=== PATIENT | female | born 2000 | race Caucasian/White ===

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

== ENCOUNTER 2023-12-27 20:12 | Emergency (ER) | payer SELFPAY ==
--- NOTE | ~2023-12-27 | CT_ITS ---
EXAMINATION: CT abdomen pelvis w con DATE: 12/28/2023 02:27 INDICATION: Suprapubic pain TECHNIQUE: Computed tomography (CT) of the abdomen and pelvis was performed with 100 mL Omnipaque-350 intravenous contrast. Automated exposure control and iterative reconstruction technique were employe d. The dose-length product was 495.00 mGy-cm. COMPARISON: None FINDINGS: Lung bases are clear. Heart size is normal. No pericardial or pleural effusion. Liver, spleen, pancre as, bilateral adrenal glands and kidneys are normal. Cholecystectomy clips the gallbladder fossa. [place] els including the appendix are normal. Bladder, uterus and bilateral adnexa are unremarkable. No free intraperitoneal gas or fluid. No pathologically enlarged nodes are unremarkable. lymphadenopathy. Mi ld lumbar levocurvature. IMPRESSION: 1. No acute intra-abdominal/pelvic process. Reviewed, dictated and finalized at location A. OFFICER
[2023-12-27 20:59] VITALS: BP 154/89; PULSE 72; RESP 18; TEMP 36.3; O2SAT 100
--- NOTE | 2023-12-27 21:02 | ED.ABDPAIN ---
HPI - Abdominal Pain General Chief Complaint: Abdominal Pain <Chel Lester PA-C - Last Filed: 12/28/23 03:14> Stated Complaint: abd pain <Chel Lester PA-C - Last Filed: 12/28/23 03:14> Time Seen by Provider: 12/27/23 21:02 <Chel Lester PA-C - Last Filed: 12/28/23 03:14> Focused HPI: 23 y/o F reports for evaluation for suprapubic abdominal pain. Pt states she has had this pain for a while, it worsened today which brought her to the ED. She reports lower abdominal pain, difficulty urinating and defecating. States she was seen in this ER for the same sx a few months ago, f/u with OBGYN and has an appointment in 3 days for evaluation of endometriosis which she is currently being worked up for these symptoms. Denies dysuria, urinary freq or urgency, fever. States it feels like she is sitting on a ball and her cervix is misplaced. GENERAL: Well-appearing, well-nourished, and in no acute distress. HEAD: Normocephalic, atraumatic. CHEST: Clear to auscultation. ?No respiratory distress. ABD: Mild tenderness to suprapubic region, LLQ and RLQ. No guarding, rebound or rigidity. No CVA tenderness. HEART: Regular rate and rhythm.? NEURO: ?Alert and oriented x3. Patient screened in triage and initial orders placed.? ?Additional care and disposition to be based upon?diagnostic testing and treatment. <Chel Lester PA-C - Last Filed: 12/28/23 03:14> History of Present Illness HPI narrative: 23 y/o F reports for evaluation for suprapubic and lower abdominal pain. Pt states she has had this pain for a while, it worsened today which brought her to the ED. She reports lower abdominal pain, difficulty urinating and defecating. States she was seen in this ER for the same sx a few months ago, f/u with OBGYN and has an appointment in 3 days for evaluation of endometriosis. Patient is currently being worked up for these symptoms in his mental may be due to endometriosis. Awaiting laparoscopic diagnosis. Denies dysuria, urinary freq or urgency, fever. States it feels like she is sitting on a ball and her cervix is misplaced. <Chel Lester PA-C - Last Filed: 12/28/23 03:14> Related Data Home Medications: Home Medications Medication Instructions Recorded Confirmed No Home Medications 09/09/23 09/09/23 <Chel Lester PA-C - Last Filed: 12/28/23 03:14> Allergies/Adverse Reactions: Allergies Allergy/AdvReac Type Severity Reaction Status Date / Time No Known Allergies Allergy Verified 09/09/23 12:47 <Chel Lester PA-C - Last Filed: 12/28/23 03:14> Review of Systems Review of Systems: CONSTITUTIONAL: Denies fever, chills, or sweats. EYES: Denies visual changes, redness, or discharge. ENT: Denies rhinorrhea, congestion, sore throat, or otalgia. CARDIOVASCULAR: Denies chest pain, palpitations, or edema. RESPIRATORY: Denies cough or dyspnea. GASTROINTESTINAL: See HPI GENITOURINARY: Denies dysuria or hematuria. SKIN: Denies rash or itching. MUSCULOSKELETAL: Denies back pain, joint pain, or myalgia. NEUROLOGIC: Denies headache, numbness, or weakness. PSYCHIATRIC: Denies anxiety or depression. <Chel Lester PA-C - Last Filed: 12/28/23 03:14> PMFSH Social History Social History: Social History Smoking status: Current every day smoker Tobacco type: e-cigarettes/vaping Alcohol intake: current Alcohol use details: SOCIAL EVENTS - NOT WEEKLY Substance use: never Substance use type: does not use Living arrangements: with family Spiritual care concerns: No <Chel Lester PA-C - Last Filed: 12/28/23 03:14> Exam Narrative: GENERAL: Well-appearing, well-nourished, and in no acute distress. Patient resting comfortably in exam bed. She is pleasant and conversational. HEAD: Normocephalic, atraumatic. EYES: PERRLA and EOMI. ENT: Nares clear, no rhinorrhea or epistaxis. Mucous membr
[2023-12-27 22:25] LABS: Basophils Absolute Auto 0.1 K/mm3 (0.0-0.1); Basophils Percent Auto 0.5 % (0.2-1.2); Eosinophils Absolute Auto 0.3 K/mm3 (0-0.3); Eosinophils Percent Auto 3.4 % (0-4.4); Hematocrit 43.3 % (37.0-47.0); Hemoglobin 14.4 g/dL (12.0-15.0); Immature Granulocyte Absolute 0.02 K/mm3 (0.00-0.031); Immature Granulocyte Percent A 0.2 % (0-0.5); Lymphocytes Absolute Auto 3.62 K/mm3 (0.9-3.2); Lymphocytes Percent Auto 36.1 % (18.3-44.2); Mean Corpuscular HGB Conc 33.3 g/dl (32-36); Mean Corpuscular Hemoglobin 29.4 pg (26-34); Mean Corpuscular Volume 88.4 fl (80-100); Mean Platelet Volume 9.4 fl (7.4-10.4); Monocytes Absolute Auto 0.6 K/mm3 (0.1-0.6); Monocytes Percent Auto 6.2 % (2.6-8.5); Neutrophils Absolute Auto 5.4 K/mm3 (1.3-6.7); Neutrophils Percent Auto 53.6 % (45.5-73.1); Platelet Count Result 334 k/mm3 (150-375); Red Cell Distribution Width 12.4 % (11.5-14.5)
[2023-12-27 22:44] LABS: Appearance Urine Clear (Clear); Bilirubin Urine Negative (Negative); Blood Urine Negative (Negative); Color Urine Yellow (Yellow); Glucose Urine UA Negative (Negative); Ketones Urine Negative (Negative); Leukocyte Esterase Ur Negative LEU/UL (Negative); Nitrate Urine Negative (Negative); Protein Urine Negative (Negative); Specific Grav Ur 1.022 (1.001-1.035)
[2023-12-27 22:44] LABS: Alanine Aminotransferase 24 U/L (6-35); Albumin Level 4.7 g/dL (3.5-5.1); Alkaline Phosphatase 89 U/L (38-126); Anion Gap 10 mmol/L (8-16); Aspartate Amino Transferase 25 U/L (14-36); Bilirubin,Total 0.5 mg/dL (0.2-1.3); Blood Urea Nitrogen 11 mg/dL (7-17); Calcium 9.4 mg/dL (8.4-10.2); Carbon Dioxide 25 mmol/L (22-30); Chloride 105 mmol/L (98-107); Estimated CRCL calculation 114 ml/min; Estimated Glomerular Filt Rate > 60; Glucose 109 mg/dL (65-110); Lipase 85 U/L (23-300); Potassium 3.8 mmol/L (3.4-5.0); Sodium 140 mmol/L (137-145)
[2023-12-27 22:56] LABS: Add Urine Microscopic? NO
[2023-12-28 00:39] VITALS: BP 128/71; PULSE 78; RESP 15; TEMP 36.4; O2SAT 100
[2023-12-28 01:10] VITALS: BP 141/89; PULSE 102; RESP 14; TEMP 37; O2SAT 100
[2023-12-28] MEDS: KETOROLAC 30 MG/ML VIAL (*BKC) IV PUSH (01:48)
[2023-12-28 03:46] VITALS: BP 138/72; PULSE 88; RESP 18; O2SAT 100
[2023-12-28 04:23] VITALS: BP 125/78; PULSE 51; RESP 18; O2SAT 100
== END 2023-12-28 04:30 | disposition home or self-care (01) ==
PROVIDERS: Emergency Provider Physician Assistant
DX: R10.30 Lower abdominal pain, unspecified (principal); F17.290 Nicotine dependence, other tobacco product, uncomplicated
CPT/HCPCS: 36415; 74177; 80053; 81003; 81025; 83690; 85025; 96374; 99284; J1885; Q9967

== ENCOUNTER 2024-01-07 17:46 | Emergency (ER) | payer SELFPAY ==
[2024-01-07 18:29] VITALS: BP 148/87; PULSE 84; RESP 18; TEMP 36.3; O2SAT 100
--- NOTE | 2024-01-07 19:45 | ED.GENADULT ---
[facility] - General Adult General Chief complaint: Extremity Problem,Nontraumatic Stated complaint: hands, feet turning purple Time Seen by Provider: 01/07/24 19:24 Source: patient Mode of arrival: ambulatory Limitations: no limitations History of Present Illness [facility] narrative: This is a 23-year-old female who presents to the ED with chief complaint of skin discoloration that she has nose for the past week. Reports that intermittently her hands and feet will turn purple. Reports that shortly after she notices she starts to notice some tingling in the extremities. She also reports associated shaking after the skin discoloration comes on. Reports daily known trigger is standing upright. Also states that when she scratches her skin it stays red rather than turning white. Denies fevers, chills, chest pain, shortness of breath, nausea, vomiting this weakness. Related Data Home Medications Medication Instructions Recorded Confirmed No Home Medications 09/09/23 09/09/23 Allergies Allergy/AdvReac Type Severity Reaction Status Date / Time No Known Allergies Allergy Verified 09/09/23 12:47 Review of Systems Review of Systems: All systems as dictated in [facility] Social History Social History Smoking status: Current every day smoker Tobacco type: e-cigarettes/vaping Alcohol intake: current Alcohol use details: SOCIAL EVENTS - NOT WEEKLY Substance use: never Substance use type: does not use Living arrangements: with family Spiritual care concerns: No Exam Narrative: GENERAL: Well-appearing, well-nourished, and in no acute distress. HEAD: Normocephalic, atraumatic. EYES: PERRLA and EOMI. ENT: Nares clear, no rhinorrhea or epistaxis. Mucous membranes moist. Oropharynx without tonsillar hypertrophy exudate or other lesions. NECK: Supple. No adenopathy or masses. CHEST: No respiratory distress. Clear to auscultation. No wheezes rales or rhonchi HEART: Regular rate and rhythm. No murmur heard. Normal peripheral pulses. ABDOMEN: Soft, nontender, nondistended, normal active bowel sounds. MSK: Normal range of motion. No edema. SKIN: Warm, dry, no rash. no discoloration to the extremities peripherally or centrally. No significant warmth or tenderness. Cap refill intact throughout. NEURO: Alert and oriented x3. No focal deficits. 5/5 strength and sensation to the upper and lower extremities. PSYCH: Normal mood and affect. Course Vital Signs Vital signs: Vital Signs Temperature 97.3 F L 01/07/24 18: Pulse Rate 84 01/07/24 18:29 Respiratory Rate 18 01/07/24 18:29 Blood Pressure 148/87 H 01/07/24 18:29 Pulse Oximetry 100 01/07/24 18:29 Oxygen Delivery Room Air 01/07/24 18:29 Temperature 97.3 F L 01/07/24 18:29 Pulse Rate 84 01/07/24 18:29 Respiratory Rate 18 01/07/24 18:29 Blood Pressure 148/87 H 01/07/24 18:29 Pulse Oximetry 100 01/07/24 18:29 Oxygen Delivery Room Air 01/07/24 18:29 Medical Decision Making MDM Narrative Medical decision making narrative: This is a 23-year-old female who presents to the ED for chief complaint of skin discoloration to the hands and feet. Vitals are normal. Exam is benign. No discolored skin. No evidence of infection. Cap refill intact. Lab work is unremarkable. She may be having episodes of Raynaud's phenomenon based on history but there are no appreciable findings on exam today. Pt will be discharged in stable condition. Return precautions given and supportive measures discussed. Pt is understanding and agreeable with plan for discharge and follow-up with PCP. Vital Signs Vital Signs: Vital Signs Temperature 97.3 F L 01/07/24 18:29 Pulse Rate 84 01/07/24 18:29 Respiratory Rate 18 01/07/24 18:29 Blood Pressure 148/87 H 01/07/24 18:29 Pulse Oximetry 100 01/07/24 18:29 Oxygen Delivery Room Air 01/07/24 18:29 Temperature
[2024-01-07 20:17] LABS: Basophils Percent Auto 0.5 % (0.2-1.2); Eosinophils Absolute Auto 0.3 K/mm3 (0-0.3); Eosinophils Percent Auto 4.1 % (0-4.4); Hemoglobin 14.2 g/dL (12.0-15.0); Immature Granulocyte Absolute 0.01 K/mm3 (0.00-0.031); Immature Granulocyte Percent A 0.1 % (0-0.5); Lymphocytes Absolute Auto 3.25 K/mm3 (0.9-3.2); Lymphocytes Percent Auto 40.3 % (18.3-44.2); Mean Corpuscular Hemoglobin 29.5 pg (26-34); Mean Corpuscular Volume 89.4 fl (80-100); Mean Platelet Volume 9.5 fl (7.4-10.4); Monocytes Absolute Auto 0.6 K/mm3 (0.1-0.6); Monocytes Percent Auto 7.4 % (2.6-8.5); Neutrophils Absolute Auto 3.8 K/mm3 (1.3-6.7); Neutrophils Percent Auto 47.6 % (45.5-73.1); Platelet Count Result 298 k/mm3 (150-375); Red Blood Count 4.81 M/mm3 (4.2-5.4); Red Cell Distribution Width 12.5 % (11.5-14.5); White Blood Count 8.1 K/mm3 (4.5-10.0)
[2024-01-07 20:26] LABS: Alanine Aminotransferase 24 U/L (6-35); Albumin Level 4.7 g/dL (3.5-5.1); Alkaline Phosphatase 75 U/L (38-126); Anion Gap 9 mmol/L (8-16); Aspartate Amino Transferase 30 U/L (14-36); Bilirubin,Total 0.6 mg/dL (0.2-1.3); Blood Urea Nitrogen 14 mg/dL (7-17); Calcium 9.3 mg/dL (8.4-10.2); Carbon Dioxide 25 mmol/L (22-30); Chloride 105 mmol/L (98-107); Estimated CRCL calculation 129 ml/min; Estimated Glomerular Filt Rate > 60; Glucose 89 mg/dL (65-110); Potassium 4.2 mmol/L (3.4-5.0); Sodium 139 mmol/L (137-145)
== END 2024-01-07 20:45 | disposition home or self-care (01) ==
PROVIDERS: Emergency Provider Physician Assistant
DX: I99.9 Unspecified disorder of circulatory system (principal); F17.290 Nicotine dependence, other tobacco product, uncomplicated
CPT/HCPCS: 36415; 80053; 85025; 99283

== ENCOUNTER 2024-01-09 16:22 | Emergency (ER) | payer OTHER, SELFPAY ==
--- NOTE | ~2024-01-09 | XR_ITS ---
EXAMINATION: XR chest 2V DATE: 01/09/2024 18:23 INDICATION: Transient alteration of awareness TECHNIQUE: Frontal and lateral views of the chest are obtained COMPARISON: None available FINDINGS: The lungs are free of acute opacities. No pleural effusion or pneumothorax. The cardiomedia stinal silhouette is normal. The visualized bones and soft tissues are unremarkable. Cholecystectomy clips are noted. IMPRESSION: 1. No acute cardiopulmonary abnormality. Reviewed, dictated and finalized at location F. EMATICS TEACHER
--- NOTE | 2024-01-09 16:23 | ECG_ITS ---
Measurements Intervals [place] Rate: 70 P: 0 MI: 118 QRS: 21 QRSD: 82 T: 43 QT: 348 QTc: 376 Interpretive Statements SINUS RHYTHM WITH SINUS ARRHYTHMIA WITH SHORT MI INTERVAL RSR' IN V1 OR V2, PROBABLY NORMAL VARIANT BASELINE WANDER- II, III, AVF, V1-V6 BORDERLINE ECG NO PREVIOUS ECG AVAILABLE FOR COMPARISON Electronically Signed On 01-10-2024 6:29:14 SENIOR NET SOFTWARE DEVELOPER by Ace Paez D.O.
[2024-01-09 16:27] VITALS: BP 149/94; PULSE 73; RESP 16; TEMP 36.8; O2SAT 100
--- NOTE | 2024-01-09 18:11 | ED.GENADULT ---
HPI - General Adult General Chief complaint: Unspecified Stated complaint: MULT C/O Time Seen by Provider: 01/09/24 18:09 Source: patient Mode of arrival: ambulatory Limitations: no limitations History of Present Illness HPI narrative: This is a 23 year old female that presents to the ER for a syncopal episode today. Reports she was laying on the couch and started to feel very lightheaded and hot and passed out. Reports pre-syncopal episodes in the past. No injuries as she was already lying down. Reports when she woke up she started to have substernal chest discomfort and nausea. Denies vision changes, shortness of breath, vomiting, numbness or weakness. Related Data Home Medications Medication Instructions Recorded Confirmed No Home Medications 09/09/23 09/09/23 Allergies Allergy/AdvReac Type Severity Reaction Status Date / Time No Known Allergies Allergy Verified 09/09/23 12:47 Review of Systems Review of Systems: CONSTITUTIONAL: Denies fever EYES: Denies visual changes CARDIOVASCULAR: Reports chest pain. Denies edema. RESPIRATORY: Denies dyspnea. GASTROINTESTINAL: Reports nausea. Denies vomiting NEUROLOGIC: Denies numbness, or weakness. All systems reviewed & are unremarkable except as noted in HPI and below PMFSH Past Medical History Medical History (Updated 01/09/24 @ 20:08 by Leeanne Ferrell PA-C) No active medical problems Social History Social History Smoking status: Current every day smoker Tobacco type: e-cigarettes/vaping Alcohol intake: current Alcohol use details: SOCIAL EVENTS - NOT WEEKLY Substance use: never Substance use type: does not use Living arrangements: with family Spiritual care concerns: No Exam Narrative: GENERAL: Well-appearing, well-nourished, and in no acute distress. HEAD: Normocephalic, atraumatic. EYES: PERRLA and EOMI. ENT: Nares clear, no rhinorrhea or epistaxis. Mucous membranes moist. Oropharynx without tonsillar hypertrophy exudate or other lesions. Bilateral TMs pearly yang non-bulging NECK: Supple. No adenopathy or masses. CHEST: Clear to auscultation. No respiratory distress. No wheezes rales or rhonchi HEART: Regular rate and rhythm. No murmur heard. Normal peripheral pulses. EXTREMITIES: Normal range of motion. No edema. SKIN: Warm, dry, no rash. NEURO: No focal deficits. Alert and oriented x3. PSYCH: Normal mood and affect Course Course Emergency Course: Patient updated on her workup and agrees with plan of care Vital Signs Vital signs: Vital Signs Temperature 98.2 F 01/09/24 16:27 Pulse Rate 73 01/09/24 16:27 Respiratory Rate 16 01/09/24 16:27 Blood Pressure 149/94 H 01/09/24 16:27 Pulse Oximetry 100 01/09/24 16:27 Oxygen Delivery Room Air 01/09/24 16:27 Temperature 98.2 F 01/09/24 16:27 Pulse Rate 79 01/09/24 20:00 Respiratory Rate 13 01/09/24 20:00 Blood Pressure 131/74 01/09/24 20:00 Pulse Oximetry 100 01/09/24 20:00 Oxygen Delivery Room Air 01/09/24 16:27 Medical Decision Making MDM Narrative Medical decision making narrative: Patient presents to the emergency department for a syncopal episode today. Her vitals are stable. She is neurologically intact. CBC and metabolic panel without concerning findings. EKG without concerning changes in baseline troponin is negative. D-dimer is not elevated. Chest x-ray without acute cardiopulmonary abnormality. [place] syncope risk score makes her very low risk. Patient updated on her workup and agrees with plan of care. Will be given order for further monitoring with Holter monitor and was instructed to have close follow-up with primary provider. She was given warnings to return to the ER Vital Signs Vital Signs: Vital Signs Temperature 98.2 F 01/09/24 16:27 Pulse Rate 73 01/09/24 16:27 Respiratory Rate 16 01/09/24 16:27 Blood Pressure 149/94 H 02
[2024-01-09 18:28] VITALS: RESP 18; O2SAT 99
[2024-01-09] MEDS: SODIUM CHLORIDE 0.9% IV 1,000 ML 999 ML IV CONT (18:31)
[2024-01-09 18:42] LABS: Basophils Absolute Auto 0.1 K/mm3 (0.0-0.1); Basophils Percent Auto 0.5 % (0.2-1.2); Eosinophils Absolute Auto 0.5 K/mm3 (0-0.3); Eosinophils Percent Auto 4.6 % (0-4.4); Hematocrit 44.9 % (37.0-47.0); Hemoglobin 14.8 g/dL (12.0-15.0); Immature Granulocyte Absolute 0.03 K/mm3 (0.00-0.031); Immature Granulocyte Percent A 0.3 % (0-0.5); Lymphocytes Absolute Auto 3.37 K/mm3 (0.9-3.2); Mean Corpuscular Hemoglobin 29.8 pg (26-34); Mean Corpuscular Volume 90.3 fl (80-100); Mean Platelet Volume 9.7 fl (7.4-10.4); Monocytes Absolute Auto 0.7 K/mm3 (0.1-0.6); Monocytes Percent Auto 7.2 % (2.6-8.5); Neutrophils Absolute Auto 5.3 K/mm3 (1.3-6.7); Neutrophils Percent Auto 53.4 % (45.5-73.1); Platelet Count Result 328 k/mm3 (150-375); Red Blood Count 4.97 M/mm3 (4.2-5.4); Red Cell Distribution Width 12.6 % (11.5-14.5); White Blood Count 9.9 K/mm3 (4.5-10.0)
[2024-01-09 18:52] LABS: Alanine Aminotransferase 26 U/L (6-35); Albumin Level 4.8 g/dL (3.5-5.1); Alkaline Phosphatase 80 U/L (38-126); Anion Gap 6 mmol/L (8-16); Aspartate Amino Transferase 30 U/L (14-36); Bilirubin,Total 0.6 mg/dL (0.2-1.3); Blood Urea Nitrogen 13 mg/dL (7-17); Calcium 9.3 mg/dL (8.4-10.2); Carbon Dioxide 26 mmol/L (22-30); Chloride 106 mmol/L (98-107); Estimated CRCL calculation 114 ml/min; Estimated Glomerular Filt Rate > 60; Glucose 86 mg/dL (65-110); Sodium 138 mmol/L (137-145)
[2024-01-09 19:05] LABS: Troponin I < 0.012 ng/mL (0.000-0.034)
[2024-01-09] MEDS: ACETAMINOPHEN 500 MG TABLET 1000 MG PO (19:22)
[2024-01-09] MEDS: ONDANSETRON INJ 4 MG/2 ML VIAL IV PUSH (19:22)
[2024-01-09 19:42] LABS: D Dimer 0.39 ug/mL (<0.48)
[2024-01-09 20:00] VITALS: BP 131/74; PULSE 79; RESP 13; O2SAT 100
[2024-01-09 20:20] VITALS: BP 137/84; PULSE 65; RESP 19; O2SAT 98
== END 2024-01-09 20:20 | disposition home or self-care (01) ==
PROVIDERS: Emergency Provider Physician Assistant
DX: R55 Syncope and collapse (principal); F17.290 Nicotine dependence, other tobacco product, uncomplicated
CPT/HCPCS: 36415; 71046; 80053; 84484; 85025; 85380; 93005; 96361; 96374; 99284; A9270; J2405; J7030

== ENCOUNTER 2024-01-22 13:28 | Outpatient (CLI) | payer OTHER, SELFPAY ==
--- NOTE | 2024-01-28 16:17 | WPDHOLTEREM ---
Holter/Event Monitor Holter/Event Monitor Date of procedure: 01/22/24 Holter/Event Procedure: 48 Hr Holter Monitor Indications: Syncope Conclusion: 1. 48 hour holter monitor on 01/22/24. 2. Underlying rhythm is sinus rhythm. HR range 40-162 bpm; average HR 65 bpm. HR at 40 bpm was at 06:21. HR at 162 bpm was at 17:03. 3. There are 371 premature supraventricular complexes and 253 supraventricular couplets. No supraventricular tachycardia. 4. There are 2 premature ventricular complexes. No ventricular tachycardia. 5. No sinoatrial or atrioventricular blocks. No significant pauses greater than 2 seconds. 6. No symptoms available for correlation.
== END 2024-01-22 13:29 | disposition home or self-care (01) ==
LOC: ANHCARD 13:32
PROVIDERS: Visit Provider Physician Assistant
DX: R55 Syncope and collapse (principal)
CPT/HCPCS: 93225; 93226

== ENCOUNTER 2024-04-20 15:48 | Emergency (ER) | payer OTHER, SELFPAY ==
[2024-04-20 16:16] VITALS: BP 141/85; PULSE 60; RESP 18; TEMP 36.6; O2SAT 98
--- NOTE | 2024-04-20 17:03 | ED.BACK ---
HPI - Back Pain/Injury General Chief Complaint: Back Pain/Injury Stated Complaint: upper back pain Time Seen by Provider: 04/20/24 17:03 Source: patient Mode of arrival: ambulatory Limitations: no limitations History of Present Illness HPI Narrative: Bettina is a 23-year-old female patient presenting to the Emergency emergency room with complaints of left upper back pain after lifting a heavy box. Denies feeling a pop in her back. She reports that there is a sharp pain in her left upper back that is worse with movement. Related Data Allergies Allergy/AdvReac Type Severity Reaction Status Date / Time No Known Allergies Allergy Verified 09/09/23 12:47 Review of Systems Review of Systems: Pertinent positives per HPI. Patient denies any fever, chills, rash, headache, visual changes, dizziness, cough, runny nose, sore throat, shortness of breath, chest pain, palpitations, nausea, vomiting, diarrhea, constipation, abdominal pain, or any urinary issues. PMFSH Past Medical History Medical History No active medical problems Social History Social History Smoking status: Current every day smoker Tobacco type: e-cigarettes/vaping Alcohol intake: current Alcohol use details: SOCIAL EVENTS - NOT WEEKLY Substance use: never Substance use type: does not use Living arrangements: with family Spiritual care concerns: No Comments At the time of my signature, I reviewed and agree with the nursing past medical, surgical, social, and family history. There is no relevant family history pertinent to the patient complaint. Exam Narrative: General: Well-developed, well nourished, in no apparent distress Head: Normocephalic, atraumatic. Cardio: Regular rate and rhythm, s1 and s2 normal, no murmur appreciated. Resp: Clear to auscultation bilaterally, no rhonchi, rales, wheezing or rubs. Musculoskeletal: No deformity,tender to palpation over the rhomboid and the trapezius musculature of the left upper back, pain with movement of the left arm to the back with sharp pain also having pain when turning her neck to the left, muscle strength strong and equal, peripheral pulse strong, no edema, no cyanosis, normal gait and station Course Course Emergency Course: Portions of this record may have been created with voice recognition software. Vital Signs Vital signs: Vital Signs Temperature 36.6 C 04/20/24 16:16 Pulse Rate 60 04/20/24 16:16 Respiratory Rate 18 04/20/24 16:16 Blood Pressure 141/85 H 04/20/24 16:16 Pulse Oximetry 98 04/20/24 16:16 Oxygen Delivery Room Air 04/20/24 16:16 Temperature 36.6 C 04/20/24 16:16 Pulse Rate 60 04/20/24 16:16 Respiratory Rate 18 04/20/24 16:16 Blood Pressure 141/85 H 04/20/24 16:16 Pulse Oximetry 98 04/20/24 16:16 Oxygen Delivery Room Air 04/20/24 16:16 Vital signs reviewed MDM - Back Pain/Injury MDM Narrative Medical decision making narrative: At the time of visit patient is resting comfortably on the exam table. Patient appears to be nontoxic. Plan: I suspect patient has a muscle strain of the thoracic spine. Will send in prescription for naproxen and Flexeril. Supportive measures were discussed with the patient and they voiced understanding discharge instructions and agrees to treatment plan. Return precautions reviewed Differential Diagnosis Differential diagnosis: Likely thoracic back pain and other (Thoracic back strain, posterior lateral cervical trapezius muscle strain) Discharge Plan Discharge Clinical Impression: Strain of muscle and tendon of back wall of thorax, initial encounter Patient Disposition: Home, Self-Care Condition: Stable Instructions: Antibiotic Form, Thoracic Back Strain (ED) Additional Instructions: Take any prescription medication only as prescribed-naproxen and Flexer
== END 2024-04-20 17:13 | disposition home or self-care (01) ==
PROVIDERS: Emergency Provider Nurse Practitioner Family
DX: S29.012A Strain of muscle and tendon of back wall of thorax, initial encounter (principal); F17.290 Nicotine dependence, other tobacco product, uncomplicated; X50.0XXA Overexertion from strenuous movement or load, initial encounter
CPT/HCPCS: 99283

== ENCOUNTER 2024-07-10 14:48 | Emergency (ER) | payer OTHER, SELFPAY ==
--- NOTE | ~2024-07-10 | CT_ITS ---
EXAMINATION: CT brain wo con DATE: 07/10/2024 15:54 INDICATION: Headache TECHNIQUE: Computed tomography (CT) of the head was performed without intravenous contrast. Sagittal and coronal reconstructions were performed. The mA was adjusted according to patient size. Iterative reconstruction technique was employed. The dose-length product was 605.33 mGy-cm. COMPARISON: None FINDINGS: No acute intracranial hemorrhage, acute infarction or abnormal extra axial fluid collection. Ventricl es are normal and symmetric. No mass/mass effect. The orbits, paranasal sinuses and mastoid air cells are normal. IMPRESSION: 1. Normal head CT. Reviewed, dictated and finalized at location A. IMPRESSION: 1. Normal head CT.
[2024-07-10 14:53] VITALS: BP 127/72; PULSE 55; RESP 16; TEMP 36.4; O2SAT 99
--- NOTE | 2024-07-10 15:26 | ED.GENADULT ---
HPI - General Adult General Chief complaint: Headache Stated complaint: MIGRAINE X1WK Time Seen by Provider: 07/10/24 15:17 History of Present Illness HPI narrative: 23-year-old female presented emergency department presents emergency department for evaluation for persistent headache. Patient reports she has had intermittent headaches since the age of 14. Patient has never had follow-up for her headaches. Patient states that her headaches have worsened over the last few weeks. Patient does have associated light sensitivity and some nausea. Patient denies any recent illnesses coughs colds or fevers. Related Data Allergies Allergy/AdvReac Type Severity Reaction Status Date / Time No Known Allergies Allergy Verified 07/10/24 15:49 Review of Systems Review of Systems: All systems reviewed & are unremarkable except as noted in HPI and below PMFSH Past Medical History Medical History No active medical problems Social History Social History Smoking status: Current every day smoker Tobacco type: e-cigarettes/vaping Alcohol intake: current Alcohol use details: SOCIAL EVENTS - NOT WEEKLY Substance use: never Substance use type: does not use Living arrangements: with family Spiritual care concerns: No Exam Narrative: APPEARANCE: Well appearing, no pain, no distress, well-nourished. HEAD: normocephalic, atraumatic. EYES: PERRLA/EOMI, conjunctivae clear. NOSE: Normal no drainage EARS:TMS clear with good light reflex. THROAT: Pharynx clear, no exudate. NECK: Supple. No adenopathy, no masses. RESPIRATORY: Airway patent, respirations nonlabored. Clear to auscultation bilaterally, no rales, rhonchi, wheezing. CARDIOVASCULAR: Regular rate and rhythm without murmurs rubs or gallops. ABDOMINAL: Soft, nontender, nondistended, normal bowel sounds MUSCULOSKELETAL: Moves all extremities. Strength/ROM intact, No edema, No calf tenderness. NEURO: Alert. Cranial nerves II through XII intact. SKIN: Warm, dry. Normal Color Course Course Emergency Course: Patient felt improved with treatment and was discharged home with instructions to have follow-up with primary care physician and with Neurology. Vital Signs Vital signs: Vital Signs Temperature 97.5 F L 07/10/24 14:53 Pulse Rate 55 L 07/10/24 14:53 Respiratory Rate 16 07/10/24 14:53 Blood Pressure 127/72 07/10/24 14:53 Pulse Oximetry 99 07/10/24 14:53 Oxygen Delivery Room Air 07/10/24 14:53 Temperature 97.5 F L 07/10/24 14:53 Pulse Rate 51 L 07/10/24 15:46 Respiratory Rate 17 07/10/24 15:46 Blood Pressure 107/62 07/10/24 15:46 Pulse Oximetry 98 07/10/24 15:46 Oxygen Delivery Room Air 07/10/24 14:53 Medical Decision Making MDM Narrative Medical decision making narrative: 23-year-old female presenting to the emergency department for evaluation for persistent headaches that have been worsening over the last few weeks. Patient had a negative head CT. Patient did feel improved with treatment with IV Toradol, IV Compazine IV Benadryl and IV fluids. Patient was encouraged to follow-up with her primary care physician and patient was also encouraged of follow-up with Urology. All questions concerns were addressed patient was well-appearing at time of discharge. Differential Diagnosis Differential Diagnosis: Intracranial abnormality, headache, migraine Vital Signs Vital Signs: Vital Signs Temperature 97.5 F L 07/10/24 14:53 Pulse Rate 55 L 07/10/24 14:53 Respiratory Rate 16 07/10/24 14:53 Blood Pressure 127/72 07/10/24 14:53 Pulse Oximetry 99 07/10/24 14:53 Oxygen Delivery Room Air 07/10/24 14:53 Temperature 97.5 F L 07/10/24 14:53 Pulse Rate 51 L 07/10/24 15:46 Respiratory Rate 17 07/10/24 15:46 Blood Pressure 107/62 07/10/24 15:46 Pulse Oximetry 98 07/10/24 15:
[2024-07-10 15:46] VITALS: BP 107/62; PULSE 51; RESP 17; O2SAT 98
[2024-07-10] MEDS: PROCHLORPERAZINE EDISYLATE 10 MG/2 ML VIAL IV PUSH (16:14)
[2024-07-10] MEDS: KETOROLAC 15 MG/ML VIAL (*BKC) IV PUSH (16:15)
[2024-07-10] MEDS: SODIUM CHLORIDE 0.9% IV 1,000 ML 999 ML IV CONT (16:15)
[2024-07-10] MEDS: diphenhydrAMINE HCl INJ 50 MG/ML VIAL 25 MG IV PUSH (16:15)
== END 2024-07-10 17:39 | disposition home or self-care (01) ==
PROVIDERS: Emergency Provider Emergency Medicine
DX: R51.9 Headache, unspecified (principal); F17.290 Nicotine dependence, other tobacco product, uncomplicated
CPT/HCPCS: 70450; 96361; 96374; 96375; 99284; J0780; J1200; J1885; J7030

== ENCOUNTER 2024-12-16 21:56 | Emergency (ER) | payer OTHER, SELFPAY ==
--- NOTE | ~2024-12-16 | XR_ITS ---
HISTORY: dog jumped on heel COMPARISON: None TECHNIQUE: 2 views of the left foot were performed. FINDINGS: No acute fracture or dislocation is appreciated. No significant degenerative disease is noted. The base of the fifth metatarsal is intact. No calcaneal spur is noted. No significant soft tissue swelling is present. IMPRESSION: No acute fracture, as detailed above. Reviewed, dictated and finalized at location A. TERRAIN VEHICLE RACER
--- OUTSIDE RECORDS SUMMARY | 2024-12-16 21:59 | XMS_ITS | Clinical Summary ---
Author Organization [facility] Address [address] [place] [address] Phone Care Team Providers Care Machinist First Class Name Role Phone Provider, None Primary Care Provider Unavailabl e Allergies No known active allergies Medications metroNIDAZOLE (Flagyl) 500 MG Tablet Take 1 Tablet by mouth in the morning and at bedtime. 28 Tablet 3 Active traMADol (ULTRAM) 50 MG TabletIndications :Pelvic inflammatory disease Take 1 Tablet by mouth every 6 hours as needed for Moderate or more severe pain. 15 Tablet 3 Active Social History Tobacco Use Types Packs/Day Years Used Date Smoking Tobacco: Never Assessed Comments Unknown Sex and Gender Information Value Date Recorded Sex Assigned at Not on file Legal Sex Female 1:37 PM CDT Gender Identity Not on file Sexual Orientation Not on file Last Filed Vital Signs Vital Sign Reading Time Taken Comments Blood Pressure 119/72 08/21/2023 1:59 PM CDT Pulse 71 08/21/2023 7:51 PM CDT Temperature 36.7 C (98 F) 08/21/2023 1:59 PM CDT Respiratory Rate 18 08/21/2023 7:51 PM CDT Oxygen Saturation 99% 08/21/2023 7:5 1 PM CDT Inhaled Oxygen Concentration - - Weight 85.3 kg (188 lb 0.8 oz) 08/21/2023 1:59 PM CDT BMI incorrect due to technical error Height 175.3 cm (5' 9 ) 08/21/2023 1:59 PM CDT BMI incorrect due to technical error Body Mass Index 27.77 08/21/2023 1:59 PM CDT Plan of Treatment Health Maintenance Due Date Last Done Comments Hepatitis C Virus (HCV) Screening 2002 TdaP Immunization 2002 Human Papillomavirus (HPV) Immunization (1 - 3-dose series) 2017 Meningococcal B Immunization (1 of 2 - Standard) 2018 Hepatitis B Immunization (1 of 3 - 19+ 3-dose series) 2021 Pap Smear 2023 Influenza Immunization (#1) 2024 SARS-COV-2 Immunization (1 - season) 2024 Respiratory Syncytial Virus (RSV) Immunization (Adult) (1 - 1-dose 75+ series) 2077 Meningococcal Immunization (ACWY) Aged Out No longer eligible based on patient's age to complete this topic Pneumococcal Immunization Combined Aged Out No longer eligible based on patient's age to complete this topic Rotavirus Immunization Aged Out No lo nger eligible based on patient's age to complete this topic Care Teams Machinist First Class Relationship Specialty Start Date End Date Provider, None [place] PCP - General 08/21/23
[2024-12-16 22:00] VITALS: BP 136/74; PULSE 78; RESP 16; TEMP 36.3; O2SAT 100
--- NOTE | 2024-12-17 01:47 | ED.LOWEXIN ---
HPI - Extremity Injury (Lower) General Chief Complaint: Extremity Injury, Lower Stated Complaint: pain in the back of foot after 80lb dog jumped on Time Seen by Provider: 12/17/24 01:42 Source: patient Mode of arrival: ambulatory Limitations: no limitations History of Present Illness HPI Narrative: This is a 24-year-old female who presents to the ED for chief complaint of right ankle injury that occurred around 12:30 p.m. today. Patient states that her dog jumped off the couch and landed on the back of her right ankle. States that she has a lot of pain in the posterior right ankle/posterior right heel. States that weight-bearing causes pain as well as palpation. Denies any further injury. Denies twist or pop. Related Data Allergies Allergy/AdvReac Type Severity Reaction Status Date / Time No Known Allergies Allergy Verified 12/16/24 21:57 Review of Systems Review of Systems: All systems as dictated in HPI [facility] Past Medical History Medical History No active medical problems Social History Social History Smoking status: Current every day smoker Tobacco type: e-cigarettes/vaping Alcohol intake: current Alcohol use details: SOCIAL EVENTS - NOT WEEKLY Substance use: never Substance use type: does not use Living arrangements: with family Spiritual care concerns: No Exam Narrative: GENERAL: Well-appearing, well-nourished, and in no acute distress. MSK: RLE: Mild tenderness to the insertion site of the Achilles tendon. Sullivan test negative. No deformities. Neurovascularly intact distally. No tenderness over the malleoli. LLE: Benign SKIN: Warm, dry, no rash. NEURO: Alert and oriented x4. No focal deficits. PSYCH: Normal mood and affect. Course Vital Signs Vital signs: Vital Signs Temperature 97.4 F L 12/16/24 22:00 Pulse Rate 78 12/16/24 22:00 Respiratory Rate 16 12/16/24 22:00 Blood Pressure 136/74 12/16/24 22:00 Pulse Oximetry 100 12/16/24 22:00 Oxygen Delivery Room Air 12/16/24 22:00 Temperature 97.4 F L 12/16/24 22:00 Pulse Rate 78 12/16/24 22:00 Respiratory Rate 16 12/16/24 22:00 Blood Pressure 136/74 12/16/24 22:00 Pulse Oximetry 100 12/16/24 22:00 Oxygen Delivery Room Air 12/16/24 22:00 MDM - Extremity Injury (Lower) MDM Narrative Medical decision making narrative: This is a 24-year-old female who presents to the ED for chief complaint of right ankle injury that occurred earlier today. Vitals are normal. Exam is remarkable for the above. Pain is most concentrated at the Achilles tendon insertion point. Achilles tendon is intact on exam with a negative Sullivan test. Right foot x-ray show no acute findings. Presentation consistent with tendon strain. Patient will be discharged in stable condition. Supportive measures discussed and return precautions given. Patient is understanding and agreeable with plan for discharge with PCP follow-up. Discharge Plan Discharge Clinical Impression: Ankle sprain and strain Patient Disposition: Home, Self-Care Condition: Stable Instructions: Antibiotic Form Additional Instructions: Your exam and imaging today are reassuring overall. No evidence of any fracture. Please take naproxen twice per day as well as Tylenol every 6 hours as needed for pain. Symptoms should self resolve over the next couple of weeks. If you have any new or worsening symptoms please return to the ER for further evaluation. Patient Language: Vincentian Prescriptions: New naproxen 500 mg tablet 500 mg PO BID PRN (Reason: pain) Qty: 30 0RF No Action naproxen 500 mg tablet 500 mg PO BID PRN (Reason: pain) 7 Days Qty: 14 0RF cyclobenzaprine 10 mg tablet 10 mg PO Q8H PRN (Reason: muscle spasm) 7 Days Qty: 21 0RF Follow-up/Referrals: UNKNOWN,DOCTOR [Primary Care Provider] - Time of Disposition: :
--- OUTSIDE RECORDS SUMMARY | 2024-12-17 02:09 | XMS_ITS | Clinical Summary ---
Author Organization [facility] Address [address] [place] [address] Phone Care Team Providers Care Catshovel Driver Name Role Phone Provider, None Primary Care [...] age to complete this topic Care Teams Catshovel Driver Relationship Specialty Start Date End Date Provider, None [place] PCP - General 08/21/23
[2024-12-17] MEDS: NAPROXEN 500 MG TABLET PO (02:15)
[2024-12-17] MEDS: ACETAMINOPHEN 500 MG TABLET 1000 MG PO (02:15)
== END 2024-12-17 02:16 | disposition home or self-care (01) ==
LOC: ANHED 12-17 02:07
PROVIDERS: Emergency Provider Physician Assistant
DX: S93.401A Sprain of unspecified ligament of right ankle, initial encounter (principal); X58.XXXA Exposure to other specified factors, initial encounter
CPT/HCPCS: 73620; 99283; A9270

== ENCOUNTER 2025-01-19 23:19 | Emergency (ER) | payer OTHER, BC, SELFPAY ==
[2025-01-19 23:20] VITALS: BP 132/79; PULSE 95; RESP 16; TEMP 36.4; O2SAT 99
--- OUTSIDE RECORDS SUMMARY | 2025-01-19 23:21 | XMS_ITS | Clinical Summary ---
Author Organization [facility] Address [address] [place] [address] Phone Care Team Providers Care Automatic Toe Laster Name Role Phone Provider, None Primary Care [...] age to complete this topic Care Teams Automatic Toe Laster Relationship Specialty Start Date End Date Provider, None [place] PCP - General 08/21/23
--- OUTSIDE RECORDS SUMMARY | 2025-01-19 23:21 | XMS_ITS | Patient Health Record ---
Author Organization [facility] Address [address] [place] [address] Care Team Providers Care Flame Cutting Supervisor Name Role Phone Dr. Jeronimo Weaver Unavailable [phone] Deisy Rubin Unavailable [phone] Allergies No Known Allergies Reason For Referral No Information Medications Medication SIG (Take, Route, Frequency, Duration) Notes Start Date End Date Status Excedrin Migraine 250-250-65 MG 2 tablets Orally Once a day Active Topiramate 25 MG 1 tab at bedtime x 1 week, then 2 tabs at bedtime x 1 week, then 3 tabs at bedtime Orally as directed for 30 days 07/30/2024 Active SUMAtriptan Succinate 50 MG 1 tab Orally once, can repeat x1 after 2 hours for 30 days As needed for migraine (max 2 tabs/day) 07/30/2024 Active Problems Problem Type SNOMED Code ICD Code Onset Dates Problem Status W/U Status Risk Notes Problem Chronic migraine without aura, non-refractor y (disorder) (655761293350 100) Migraine without aura, not intractable, without status migrainosus (G43.009) Active confirmed Problem Migraine with aura (7540328) Migraine with aura, not intractable, without status migrainosus (G43.109) Active confirmed Problem Chronic migraine without aura, non-intractab le (218011719985 100) Chronic migraine without aura, not intractable, without status migrainosus (G43.709) Active confirmed Encounters Encounter Location Date Provider Diagnosis [facility] [place] [address] [address] 10/15/2024 Deisy Rubin Chronic migraine without aura, not intractable, without status migrainosus G43.709 and Drug-induced headache, not elsewhere classified, not intractable G44.40 [facility] [place] [address] [address] 07/30/2024 Jeronimo Weaver Chronic migraine without aura, not intractable, without status migrainosus G43.709 and Drug-induced headache, not elsewhere classified, not intractable G44.40 Assessments Encounter Date Diagnosis (ICD Code) Assessment Notes Treatment Notes Treatment Clinical Notes Section Notes 07/30/2024 Chronic migraine without aura, not intractable, without status migrainosus (ICD-10 - G43.709) -Abortive treatment plan: Start sumatriptan 50 mg tablets. May take second tablet in 2 hours if first done is ineffective. Gave samples of Nurtec and Ubrelvy.-Preventi ve treatment plan: Start topamax 25 mg qhs x 7 days, increase to 50 mg qhs x7 days, then increase to 75 mg qhs from then on. Patient counseled r.e. potential side effects.-Educated the patient on migraine lifestyle recommendations. I recommended the following measures: avoid known triggers of migraine, drink > 100 fluid ounces of non-caffeinated fluid daily, limit caffeine to 2 servings/day, sleep 7-8 hours/night and address any sleep concerns with us and report symptoms of snoring or fatigue; healthy management of stress; avoid treating headaches more than 2 days/week with abortive medication unless approved in treatment plan; can take Riboflavin 400 mg and Magnesium 500 mg daily as supplements; keep scheduled follow-up appointments 07/30/2024 Drug-induced headache, not elsewhere classified, not intractable (ICD-10 - G44.40) Limit use of Excedrin and OTC analgesics to less than 2x weekly. Educated patient regarding medication overuse headaches. Advised to avoid taking NSAIDs or acetaminophen > 15 days/month, triptans or DHE > 10 days/month, butalbital > 10 days/month to avoid rebound headaches. 10/15/2024 Chronic migraine without aura, not intractable, without status migrainosus (ICD-10 - G43.709) 10/15/2024 Drug-induced headache, not elsewhere classified, not intractable (ICD-10 - G44.40) Plan Of Treatment No Information Insurance Providers Payer Name Payer Address Payer Phone Subscriber Number Group Number Insured Name Patient Relationship to Insured Coverage Start Date Coverage End Date [facility] [address] [place] [address] [id number] Natalio [place] Spouse - patient is the spouse of the insured 4 Medical (General) History Medical History History ICD Code Migraine Surgical History Surgery Date(Month/Year) Cholecystectomy
--- OUTSIDE RECORDS SUMMARY | 2025-01-19 23:21 | XMS_ITS ---
Author Organization [facility] Address [address] [place] [address] Care Team Providers Care Applied Marine Physics Professor Name Role Phone Dr. Jeronimo Weaver Unavailable [phone] Deisy Rubin Unavailable [phone] Allergies No Known Allergies REASON FOR VISIT NO SHOW Medications Medication SIG (Take, Route, Frequency, Duration) [...] for migraine (max 2 tabs/day) 07/30/2024 Active Encounters Encounter Location Date Provider Diagnosis [facility] [address] [facility] [address] [place] [id number] 10/15/2024 Deisy Rubin Chronic migraine without aura, not intractable, without status migrainosus G43.709 and Drug-induced headache, not elsewhere classified, not intractable G44.40 Assessments Encounter Date Diagnosis (ICD Code) Assessment Notes Treatment Notes Treatment Clinical Notes Section Notes 10/15/2024 Chronic migraine without aura, not intractable, without status migrainosus (ICD-10 - G43.709) 10/15/2024 Drug-induced headache, not elsewhere classified, not intractable (ICD-10 - G44.40) Plan Of Treatment Next Appt Details Follow Up: , Reason: Evaluat ion and Management Progress Notes * Veronica CLAYTONOB: 2 (24 yo F)Acc No.[id number]:10/15/2024 Progress Notes Patient: Bettina LUNA Provider: Td Rubin APRN :2000 A ge:24 Y S ex:Female Date:10/15/2024 Address:[address] [place] [address] Subjective: * Chief Complaints: * 1 . NO SHOW. * ROS: R ESPIRATORY: Positive for P atient denies shortness of breath or wheezing. O PHTHALMOLOGY: Positive for R eviewed and except as mentioned above in the HPI is negative. E NDOCRINOLOGY: Positive for P atient denies heat intolerance, cold intolerance, polyuria, elevated blood sugar, chronic fatigue. C ARDIOLOGY: Positive for P atient denies dizziness, palpitations, or chest pain. G ASTROENTEROLOGY: Positive for P atient denies diarrhea, melena, bloody stools, or abdominal pain. U ROLOGY: Positive for P atient denies urinary incontinence or urinary dysfunction. D ERMATOLOGY: Positive for P atient denies rash or hives. ? N EUROLOGY: Positive for R eviewed and except as mentioned above in the HPI is negative. H EMATOLOGY/LYMPH: Positive for P atient denies history of excessive bruising or bleeding diasthesis. M USCULOSKELETAL: Positive for P atient denies extremity joint pain or swelling. P SYCHOLOGY: Positive for R eviewed and except as discussed above in the HPI is otherwise negative. * Medical History: Diana igraine. * Surgical History: C holecystectomy . * Family History: She has a family history of migraines (mother). * Social History: Non-smoker. * Medications: T aking SUMAtriptan Succinate 50 MG Tablet 1 tab Orally once, can repeat x1 after 2 hours As needed for migraine (max 2 tabs/day), Taking Topiramate 25 MG Tablet 1 tab at bedtime x 1 week, then 2 tabs at bedtime x 1 week, then 3 tabs at bedtime Orally as directed , Taking Excedrin Migraine 250-250-65 MG Tablet 2 tablets Orally Once a day * Allergies: N .K.D.A. Objective: * Vitals: Assessment: * Assessment: 1. C hronic migraine without aura, not intractable, without status migrainosus - G43.709 (Primary) 2 . D rug-induced headache, not elsewhere classified, not intractable - G44.40 Plan: * Treatment: * Follow Up: Christos sandra: Evaluation and Management * Billing Information: * Visit Code: * Procedure Codes: * Electronic signature of VICKEY Pickard on 01/19/2025 at 11:21 PM CDT Sign off status: Pending * Provider: Td Rubin APRN Date: 12/16/2023 Generated for Dg hicks/Melvi/Radu on: 0 01/19/2025 11:21 PM CDT
--- OUTSIDE RECORDS SUMMARY | 2025-01-19 23:21 | XMS_ITS ---
Author Organization [facility] Address [address] [place] [address] Care Team Providers Care Pm Head Cook Name Role Phone Dr. Jeronimo Weaver Unavailable [phone] Deisy Rubin Unavailable [phone] Allergies No Known Allergies REASON FOR VISIT Headache follow-up Medications Medication SIG (Take, Route, Frequency, Duration) Notes Start Date End Date Status SUMAtriptan Succinate 50 MG 1 tab Orally once, can repeat x1 after 2 hours for 30 days As needed for migraine (max 2 tabs/day) 07/30/2024 Active Topiramate 25 MG 1 tab at bedtime x 1 week, then 2 tabs at bedtime x 1 week, then 3 tabs at bedtime Orally as directed for 30 days 07/30/2024 Active Excedrin Migraine 250-250-65 MG 2 tablets Orally Once a day Active Encounters Encounter Location Date Provider Diagnosis [facility] [address] [address] 09/10/2024 Deisy Rubin Chronic migraine without aura, not intractable, without status migrainosus G43.709 and Drug-induced headache, not elsewhere classified, not intractable G44.40 Assessments Encounter Date Diagnosis (ICD Code) Assessment Notes Treatment Notes Treatment Clinical Notes Section Notes 09/10/2024 Chronic migraine without aura, not intractable, without status migrainosus (ICD-10 - G43.709) 09/10/2024 Drug-induced headache, not elsewhere classified, not intractable (ICD-10 - G44.40) Plan Of Treatment Next Appt Details Follow Up: , Reason: Evaluat ion and Management Progress Notes * Veronica CLAYTONOB: 2 (24 yo F)Acc No.[id number]:09/10/2024 Progress Notes Patient: Bettina LUNA Provider: Td Rubin APRN :2000 A ge:24 Y S ex:Female Date:09/10/2024 Address:[address] [place], [place] [address] Subjective: * Chief Complaints: * 1 . Headache follow-up. * HPI: * Introduction: I had the pleasure of seeing Frederick Clayton, who presented for follow-up for chronic migraine and MOH. * Initial History: INITIAL VISIT HISTORY: She endorses worsening headaches over the last year. She was recently seen in the ED for migraine and imaging was normal. She is currently having daily headaches. The headaches consist of bilateral pain in the forehead and temporal regions. She has associated symptoms of nausea and photophobia. The headaches last several days with or without treatment. She has been taking Excedrin daily for several months. She has not been prescribed migraine medications in the past. She has a family history of migraines (mother). She denies any history of head trauma or injury. Headache History: -Headache Onset: Age 14-Headache Description: Starts with bilateral frontal and temporal pain and pressure. The pain progressively gets worse. She has associated symptoms of nausea and photophobia. The headache can last 24 hours to one week. -Headache Triggers: None identified -Headache Frequency: The patient is currently experiencing 30 Headache days/month and 2-3 severe migraine days/month. * Previous Impression & Plan: Notes P revious Diagnoses: 1 . Chronic migraine without aura, not intractable, without status migrainosus - G43.709 (Primary) 2 . Drug-induced headache, not elsewhere classified, not intractable - G44.40 P revious Recommendations: 1 . Abortive: S tart sumatriptan 50 mg tablets. May take second tablet in 2 hours if first done is ineffective. Gave samples of Nurtec and Ubrelvy. Preventive: Start topamax 25 mg qhs x 7 days, increase to 50 mg qhs x7 days, then increase to 75 mg qhs from then on. Patient counseled r.e. potential side effects. 2 . Limit use of Excedrin and OTC analgesics to less than 2x weekly. Educated patient regarding medication overuse headaches. Advised to avoid taking NSAIDs or acetaminophen > 15 days/month, triptans or DHE > 10 days/month, butalbital > 10 days/month to avoid rebound headaches. * Interval History: Notes P harmacologic Treatment: C urrent abortive treatment: Sumatriptan 50 mg, s amples of Nurtec and Ubrelvy P revious abortive treatment: E xcedrin (inconsistently/partially effective), G oody's headache powder (aspirin/acetaminophen/caffeine), ibuprofen, acetaminophen C urrent preventive treatment: Topamax 75 mg? P revious preventive treatment: M edication overuse: Present (Daily Excedrin) H eadache Frequency: I nitial/baseline headache/migraine days/month: 30/2-3 L ast visit headache/migraine days/month:-3 C urrent headache/migraine days/month: / H eadache Scales: H IT-6: Current score: . Prior score: 83 I nterval History: L ast visit was on 07/30/2024.. * ROS: C ONSTITUTIONAL: Positive for P atient denies fevers, chills, sweats, unintended weight loss, loss of appetite, or chronic fatigue. E NT: Positive P atient denies ear fullness or pain or sinus pain. R ESPIRATORY: Positive for P atient denies [...] HPI is otherwise negative. * Medical History: M igrha. * Surgical History: C holecystectomy . * [...] * Allergies: N .K.D.A. Objective: * Vitals: * Examination: G eneral examination: General appearance: P leasant, well-developed, no distress.? HEENT: P upils equal, round and reactive to light. No conjunctival injection. No tenderness to palpation over the maxillary sinuses. No turbinate hypertrophy. Tympanic membranes appear normal. No oral lesions. No tenderness over the occipital notch bilaterally. Oral cavity: N ormal, no lesions. Neck, thyroid : S upple, non-tender, no anterior cervical lymphadenopathy. Breasts : N ot performed. Heart: R RR, S1-S2, no murmurs, no rubs, no gallops. Lungs: C lear to auscultation and percussion in all lung tello. Abdomen: S oft, NT/ND, normal active bowel sounds. Neurologic exam: A lert and oriented x 4. Fluent speech. Intact recall, fund of knowledge. Appropriate affect. PERRL. EOMI without nystagmus. No visual field cut. Facial sensation intact to light touch and pinprick in bilateral V1/V2/V3. Facial movements normal and symmetric. Hearing intact to finger rub bilaterally. Palate symmetrically upgoing. Tongue midline. Motor 5/5 strength in all extremities. Reflexes 2+/2 and symmetric in all extremities. Bilateral flexor plantar responses. Sensory exam intact to light touch, pinprick, vibration, and proprioception in all extremities. Cerebellar testing no ataxia or dysmetria. Gait normal, negative Romberg, intact tandem. Skin: N ormal, no rash, urticaria, angioedema. Peripheral pulses: n ormal (2+) bilaterally. Back: N o cervical or periscapular trigger points. Normal cervical and lumbar ROM. Extremities: N ormal ROM, no clubbing, no cyanosis, no edema. Genitalia: N ot performed. Assessment: * Assessment: 1. C hronic migraine without aura, not intractable, without status migrainosus - G43.709 (Primary) 2 . D rug-induced headache, not elsewhere classified, not intractable - G44.40 Plan: * Treatment: * Procedure Codes: 9 6160 PT-FOCUSED HLTH RISK ASSMT, G8427 DOC MEDS VERIFIED W/PT OR RE, G2211 Complex e/m visit add on * Follow Up: Christos sandra: Evaluation and Management * Billing Information: * Visit Code: 35355 Office Visit, Est Pt., Level 4. Modifiers: 25 45412 Office Visit, Est Pt., Level 3. Modifiers: 25 20978 Office Visit, Est Pt., Level 5. Modifiers: 25 * Procedure Codes: 85718 PT-FOCUSED HLTH RISK ASSMT. G8427 DOC MEDS VERIFIED W/PT OR RE. G2211 Complex e/m visit add on. * Electronic signature of VICKEY Pickard on 01/19/2025 at 11:21 PM CDT Sign off status: Pending * Provider: Td Rubin, DANE Date: 1 Generated for Dg hicks/Melvi/Anneitting on: 0 01/19/2025 11:21 PM CDT History and Physical Notes * HPI (History of Present Illness) Category Sub-Category Detail Notes Category Notes *Introduction I had the pleasure of seeing Bettina Clayton, who presented for follow-up for chronic migraine and MOH *Initial History INITIAL VISIT HISTORY: She endorses worsening headaches over the last year. She was recently seen in the ED for migraine and imaging was normal. She is currently having daily headaches. The headaches consist of bilateral pain in the forehead and temporal regions. She has associated symptoms of nausea and photophobia. The headaches last several days with or without treatment. She has been taking Excedrin daily for several months. She has not been prescribed migraine medications in the past. She has a family history of migraines (mother). She denies any history of head trauma or injury. Headache History: -Headache Onset: Age 14-Headache Description: Starts with bilateral frontal and temporal pain and pressure. The pain progressively gets worse. She has associated symptoms of nausea and photophobia. The headache can last 24 hours to one week. -Headache Triggers: None identified -Headache Frequency: The patient is currently experiencing 30 Headache days/month and 2-3 severe migraine days/month *Previous Impression & Plan Notes Previous Diagnoses:1. Chroni c migraine without aura, not intractable, without status migrainosus - G43.709 (Primary)2. Drug-induced headache, not elsewhere classified, not intractable - G44.40Previous Recommendations:1. Abortive: Start sumatriptan 50 mg tablets. May take second tablet in 2 hours if first done is ineffective. Gave samples of Nurtec and Ubrelvy. Preventive: Start topamax 25 mg qhs x 7 days, increase to 50 mg qhs x7 days, then increase to 75 mg qhs from then on. Patient counseled r.e. potential side effects.2. Limit use of Excedrin and OTC analgesics to less than 2x weekly. Educated patient regarding medication overuse headaches. Advised to avoid taking NSAIDs or acetaminophen > 15 days/month, triptans or DHE > 10 days/month, butalbital > 10 days/month to avoid rebound headaches *Interval History Notes Pharmacologic Treatment:Curr ent abortive treatment: Sumatriptan 50 mg, samples of Nurtec and UbrelvyPrevious abortive treatment: Excedrin (inconsistently/partially effective), Goody's headache powder (aspirin/acetaminophen/caffeine), ibuprofen, acetaminophenCurrent preventive treatment: Topamax 75 mg Previous preventive treatment:Medication overuse: Present (Daily Excedrin)Headache Frequency:Initial/baseline headache/migraine days/month: 30/2-3Last visit headache/migraine days/month: 30/2-3Current headache/migraine days/month: /Headache Scales:HIT-6: Current score: . Prior score: 83Interval History:Last visit was on 07/30/2024. Examination Category Sub-Category Detail Notes Category Not es General examination HEENT: Pupils equal , round and reactive to light. No conjunctival injection. No tenderness to palpation over the maxillary sinuses. No turbinate hypertrophy. Tympanic membranes appear normal. No oral lesions. No tenderness over the occipital notch bilaterally Neck, thyroid : Supple, non-tender, no anterior cervical lymphadenopathy Heart: RRR, S1-S2, no murmu rs, no rubs, no gallops Lungs: Clear to auscultatio n and percussion in all lung tello Abdomen: Soft, NT/ND, normal active bowel sounds Extremities: Normal ROM, no clubb ing, no cyanosis, no edema General appearance: Pleasant, well-devel oped, no distress Skin: Normal, no rash, urt icaria, angioedema Neurologic exam: Alert and oriented x 4. Fluent speech. Intact recall, fund of knowledge. Appropriate affect. PERRL. EOMI without nystagmus. No visual field cut. Facial sensation intact to light touch and pinprick in bilateral V1/V2/V3. Facial movements normal and symmetric. Hearing intact to finger rub bilaterally. Palate symmetrically upgoing. Tongue midline. Motor 5/5 strength in all extremities. Reflexes 2+/2 and symmetric in all extremities. Bilateral flexor plantar responses. Sensory exam intact to light touch, pinprick, vibration, and proprioception in all extremities. Cerebellar testing no ataxia or dysmetria. Gait normal, negative Romberg, intact tandem Oral cavity: Normal, no lesions Breasts : Not performed Peripheral pulses: normal (2+) bilatera lly Back: No cervical or peris capular trigger points. Normal cervical and lumbar ROM Genitalia: Not performed
--- OUTSIDE RECORDS SUMMARY | 2025-01-19 23:22 | XMS_ITS ---
Author Organization [facility] Address [address] [place] [address] Care Team Providers Care Circus Agent Name Role Phone Dr. Jeronimo Weaver Unavailable [phone] Deisy Rubin Unavailable [phone] Allergies No Known Allergies REASON FOR VISIT Headache follow-up Medications Medication SIG (Take, Route, Frequency, Duration) Notes Start Date End Date Status Topiramate 25 MG 1 tab at bedtime x 1 week, then 2 tabs at bedtime x 1 week, then 3 tabs at bedtime Orally as directed for 30 days 07/30/2024 Active Excedrin Migraine 250-250-65 MG 2 tablets Orally Once a day Active SUMAtriptan Succinate 50 MG 1 tab Orally once, can repeat x1 after 2 hours for 30 days As needed for migraine (max 2 tabs/day) 07/30/2024 Active Encounters Encounter Location Date Provider Diagnosis [facility] [address] [address] 10/01/2024 Deisy Rubin Chronic migraine without aura, not intractable, without status migrainosus G43.709 and Drug-induced headache, not elsewhere classified, not intractable G44.40 Assessments Encounter Date Diagnosis (ICD Code) Assessment Notes Treatment Notes Treatment Clinical Notes Section Notes 10/01/2024 Chronic migraine without aura, not intractable, without status migrainosus (ICD-10 - G43.709) 10/01/2024 Drug-induced headache, not elsewhere classified, not intractable (ICD-10 - G44.40) Plan Of Treatment Next Appt Details Follow Up: , Reason: Evaluat ion and Management Progress Notes * Veronica CLAYTONOB: 2 (24 yo F)Acc No.[id number]:10/01/2024 Progress Notes Patient: Bettina LUNA Provider: Td Rubin APRN :2000 A ge:24 Y S ex:Female Date:10/01/2024 Address:[address] [place], [place] [address] Subjective: * Chief Complaints: * 1 . [...] Treatment: C urrent abortive treatment: Sumatriptan 50 mg tablets, s amples of Nurtec and Ubrelvy, E xcedrin (inconsistently/partially effective) P revious abortive treatment: Goody's headache powder (aspirin/acetaminophen/caffeine), ibuprofen, acetaminophen C urrent preventive treatment: Topamax 7 5 mg qhs P revious preventive treatment: M edication overuse: Present (Daily Excedrin) O ther modalities: H eadache Frequency: I nitial/baseline headache/migraine days/month: /2- L ast visit headache/migraine days/month:- C urrent headache/migraine days/month: / Headache Scales:HIT-6: Current Score: . Prior Score: 83 I nterval History: L ast visit [...] is otherwise negative. * Medical History: Diana igrha. * Surgical History: C holecystectomy . [...] Management * Billing Information: * Visit Code: 99279 Office Visit, Est Pt., Level 4. Modifiers: 48418 Office Visit, Est Pt., Level 3. Modifiers: 25 15747 Office Visit, Est Pt., Level 5. Modifiers: 25 * Procedure Codes: 30069 PT-FOCUSED HLTH RISK ASSMT. G8427 DOC MEDS VERIFIED W/PT OR RE. G2211 Complex e/m visit add on. * Electronic signature of VICKEY Pickard on 01/19/2025 at 11:21 PM CDT Sign off status: Pending * Provider: Td Rubin, MACHINERY MECHANIC Date: 12/01/2023 Generated for Dg hicks/Melvi/Anneitting on: 0 01/19/2025 [...] Pharmacologic Treatment:Curr ent abortive treatment: Sumatriptan 50 mg tablets, samples of Nurtec and Ubrelvy, Excedrin (inconsistently/partially effective)Previous abortive treatment: Goody's headache powder (aspirin/acetaminophen/caffeine), ibuprofen, acetaminophenCurrent preventive treatment: Topamax 75 mg qhsPrevious preventive treatment:Medication overuse: Present (Daily Excedrin)Other modalities: Headache Frequency:Initial/baseline headache/migraine days/month: 30/2-3Last visit headache/migraine days/month: 30/2-3Current headache/migraine days/month: /Headache Scales:HIT-6: Current Score: . Prior Score: 83Interval History:Last visit was on 07/30/2024. Examination [...]
[2025-01-19 23:54] VITALS: PULSE 72; RESP 19; O2SAT 99
[2025-01-20] VITALS (14 sets, daily range): BP systolic 120–136; BP diastolic 73–89; PULSE 55–88; RESP 14–22; O2SAT 97–100
[2025-01-20 00:04] LABS: BEDSIDEPREGUCG Negative (Negative)
--- OUTSIDE RECORDS SUMMARY | 2025-01-20 00:40 | XMS_ITS ---
Author Organization [facility] Address [address] [place] [address] Care Team Providers Care Silk Weaver Name Role Phone Dr. Jeronimo Weaver Unavailable [phone] Deisy Rubin Unavailable [phone] Allergies No Known Allergies REASON FOR VISIT [...] Encounters Encounter Location Date Provider Diagnosis [facility] [address]22 [facility] [address] [place] [address] 10/15/2024 Deisy Rubin Chronic migraine without aura, [...] * Veronica CLAYTONOB: 2 (24 yo F)Acc No.[id number]:10/15/2024 Progress Notes Patient: Bettina LNUA Provider: Td Rubin APRN :2000 A ge:24 Y S ex:Female Date:10/15/2024 Address:[address] [place] [address] Subjective: * Chief Complaints: * 1 . [...] * Electronic signature of VICKEY Pickard on 01/20/2025 at 12:40 AM CDT Sign off status: Pending * Provider: Td Rubin APRN Date: 12/16/2023 Generated for Dg hicks/Melvi/Radu on: 0 01/20/2025 12:40 AM CDT
--- OUTSIDE RECORDS SUMMARY | 2025-01-20 00:40 | XMS_ITS ---
Author Organization [facility] Address [address] [place] [address] Care Team Providers Care Bread Distributor Name Role Phone Dr. Jeronimo Weaver Unavailable [phone] Deisy Rubin Unavailable [phone] Allergies No Known Allergies REASON FOR VISIT [...] Active Encounters Encounter Location Date Provider Diagnosis [facility] [address] [address] 09/10/2024 Deisy Rubin Chronic migraine without aura, [...] * Veronica CLAYTONOB: 2 (24 yo F)Acc No.[id number]:09/10/2024 Progress Notes Patient: Bettina LUNA Provider: Td Rubin APRN :2000 A ge:24 Y S ex:Female Date:09/10/2024 Address:[address] [place], [place] [address] Subjective: * Chief Complaints: * 1 . [...] Management * Billing Information: * Visit Code: 80117 Office Visit, Est Pt., Level 4. Modifiers: 25 32444 Office Visit, Est Pt., Level 3. Modifiers: 25 20456 Office Visit, Est Pt., Level 5. Modifiers: 25 * Procedure Codes: 41236 PT-FOCUSED HLTH RISK ASSMT. G8427 DOC MEDS VERIFIED W/PT OR RE. G2211 Complex e/m visit add on. * Electronic signature of VICKEY Pickard on 01/20/2025 at 12:40 AM CDT Sign off status: Pending * Provider: Td Rubin APRN Date: 1 Generated for Dg hicks/Melvi/Radu on: 0 01/20/2025 12:40 AM CDT History and Physical Notes * HPI [...]
--- OUTSIDE RECORDS SUMMARY | 2025-01-20 00:40 | XMS_ITS | Clinical Summary ---
Author Organization [facility] Address [address] [place] [address] Phone Care Team Providers Care Capture Manager Name Role Phone Provider, None Primary Care [...] age to complete this topic Care Teams Capture Manager Relationship Specialty Start Date End Date Provider, None [place] PCP - General 08/21/23
--- OUTSIDE RECORDS SUMMARY | 2025-01-20 00:41 | XMS_ITS ---
Author Organization [facility] Address [address] [place] [address] Care Team Providers Care Gold Leaf Layer Name Role Phone Dr. Jernoimo Weaver Unavailable [phone] Deisy Rubin Unavailable [phone] Allergies No Known Allergies REASON FOR VISIT [...] Active Encounters Encounter Location Date Provider Diagnosis [facility] [address] [address] 10/01/2024 Deisy Rubin Chronic migraine without aura, [...] * Veronica CLAYTONOB: 2 (24 yo F)Acc No.[id number]:10/01/2024 Progress Notes Patient: Bettina LUNA Provider: Td Rubin APRN :2000 A ge:24 Y S ex:Female Date:10/01/2024 Address:[address] [place], [place] [address] Subjective: * Chief Complaints: * 1 . [...] Management * Billing Information: * Visit Code: 22209 Office Visit, Est Pt., Level 4. Modifiers: 25 34059 Office Visit, Est Pt., Level 3. Modifiers: 25 12972 Office Visit, Est Pt., Level 5. Modifiers: 25 * Procedure Codes: 45497 PT-FOCUSED HLTH RISK ASSMT. G8427 DOC MEDS VERIFIED W/PT OR RE. G2211 Complex e/m visit add on. * Electronic signature of VICKEY Pickard on 01/20/2025 at 12:40 AM CDT Sign off status: Pending * Provider: Td Rubin, DANE Date: 1 12/01/2023 Generated for Dg hicks/Melvi/Anneitting on: 0 01/20/2025 12:40 AM CDT History [...]
--- OUTSIDE RECORDS SUMMARY | 2025-01-20 00:41 | XMS_ITS | Patient Health Record ---
Author Organization [facility] Address [address] [place] [address] Care Team Providers Care Hand Inserter Operator Name Role Phone Dr. Jeronimo Weaver Unavailable [phone] Deisy Rubin Unavailable [phone] Allergies No Known Allergies Reason For Referral [...] Chronic migraine without aura, non-refractor y (disorder) (575229321576 100) Migraine without aura, not intractable, without status migrainosus (G43.009) Active confirmed Problem Migraine with aura (4095811) Migraine with aura, not intractable, without status migrainosus (G43.109) Active confirmed Problem Chronic migraine without aura, non-intractab le (206313579833 100) Chronic migraine without aura, not intractable, without status migrainosus (G43.709) Active confirmed Encounters Encounter Location Date Provider Diagnosis [facility] [address] [address] 10/15/2024 Deisy Rubin Chronic migraine without aura, not intractable, without status migrainosus G43.709 and Drug-induced headache, not elsewhere classified, not intractable G44.40 [facility] [address] [address] 07/30/2024 Jeronimo Weaver Chronic migraine without aura, [...] Insured Coverage Start Date Coverage End Date [facility] [address] [place] [address] [id number] Natalio [place] Spouse - patient is the spouse of the insured 4 Medical (General) History Medical History History ICD Code Migraine Surgical History Surgery Date(Month/Year) Cholecystectomy
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
[2025-01-20] MEDS: ACETAMINOPHEN 325 MG TABLET 650 MG PO (01:17)
[2025-01-20] MEDS: IBUPROFEN 400 MG TABLET 800 MG PO (01:18)
== END 2025-01-20 02:03 | disposition home or self-care (01) ==
PROVIDERS: Emergency Provider Physician Assistant
DX: S80.02XA Contusion of left knee, initial encounter (principal); S16.1XXA Strain of muscle, fascia and tendon at neck level, initial encounter; F17.290 Nicotine dependence, other tobacco product, uncomplicated; W01.0XXA Fall on same level from slipping, tripping and stumbling without subsequent striking against object, initial encounter
CPT/HCPCS: 73562; 81025; 99283; A9270

== ENCOUNTER 2025-03-18 13:17 | Emergency (ER) | payer BC, SELFPAY ==
--- NOTE | ~2025-03-18 | US_ITS ---
EXAM: PELVIC ULTRASOUND HISTORY: LLQ pelvic pain COMPARISON: None. Reference is made to the CT examination of the abdomen and pelvis dated 12/28/2023 FINDINGS: UTERUS: 8 x 3.9 x 5.2 cm. The uterus is anteverted and anteflexed. The endometrial complex measures 8.4 mm. Subcentimeter nabothian cyst within the cervix RIGHT OVARY: The right ovary is unremarkable in echogenicity and size measuring 3.2 x 1.8 x 2.9 cm. Dopplerable flow is identified. LEFT OVARY: The left ovary is unremarkable in size measuring 2.9 x 3.2 x 2.9 cm Dopplerable flow is identified. A single anechoic avascular focus is identified within the left ovary measuring 23 x 18 x 17 mm, repr esenting a simple cyst for which no further follow-up is needed. No free fluid is identified within the pelvis. IMPRESSION: Simple cyst within the left ovary measuring 23 mm in greatest dimension, which does not meet size cri teria for follow-up. Otherwise, unremarkable sonographic evaluation of the female pelvis, as detailed above. Reviewed, dictated and finalized at location A. IMPRESSION: Simple cyst within the left ovary measuring 23 mm in greatest dimension, which does not meet size criteria for follow-up. Otherwise, unremarkable sonographic evaluation of the female pelvis, as detaile d above.
[2025-03-18 13:21] VITALS: BP 137/87; PULSE 78; RESP 16; TEMP 36.4; O2SAT 98
--- OUTSIDE RECORDS SUMMARY | 2025-03-18 13:23 | XMS_ITS | Clinical Summary ---
Author Organization [facility] Address [address] [place] [address] Phone Care Team Providers Care Engineering Model Maker Name Role Phone Provider, None Primary Care [...] age to complete this topic Care Teams Engineering Model Maker Relationship Specialty Start Date End Date Provider, None [place] PCP - General 08/21/23
[2025-03-18 13:39] LABS: BEDSIDEPREGUCG Negative (Negative)
[2025-03-18 13:47] LABS: Add Urine Microscopic? NO; Appearance Urine Clear (Clear); Bilirubin Urine Negative (Negative); Blood Urine Negative (Negative); Color Urine Yellow (Yellow); Glucose Urine UA Negative (Negative); Ketones Urine Negative (Negative); Leukocyte Esterase Ur Negative LEU/UL (Negative); Nitrate Urine Negative (Negative); Protein Urine Negative (Negative); pH Urine 6.5 (5.0-9.0)
--- NOTE | 2025-03-18 14:03 | ED.FEMALEGU ---
HPI - Female Genitourinary General Chief complaint: Urogenital-Female Stated complaint: urinary issues Time Seen by Provider: 03/18/25 13:45 History of Present Illness HPI Narrative: 24-year-old female with history of dysmenorrhea and chronic pelvic pain. Patient presents to the emergency room with chief complaint of dysuria and left lower quadrant pelvic pain. She states that she has had this pain for many weeks and discuss this with her new OBGYN last week and was referred to pelvic floor physical therapy. Previously patient had discussions for laparoscopic procedure to diagnose endometriosis with her previous OBGYN but this was not established secondary to potential insurance issues. Patient states she feels burning whenever she tries to go the bathroom. Denies any polyuria, polydipsia, difficulty initiating stream or any hematuria. Denies any fever, chills, diarrhea, abdominal pain, nausea, vomiting. No trauma or injury. Does not contraceptive medications. Related Data Allergies Allergy/AdvReac Type Severity Reaction Status Date / Time No Known Allergies Allergy Verified 03/18/25 13:28 Review of Systems Review of Systems: As reviewed above in the HPI [facility] Past Medical History Medical History No active medical problems Surgical History Surgical History H/O skin graft S/P cholecystectomy Social History Social History Smoking status: Current every day smoker Tobacco type: e-cigarettes/vaping Alcohol intake: current Alcohol use details: SOCIAL EVENTS - NOT WEEKLY Substance use: never Substance use type: does not use Do You Feel Safe in your Home?: Yes Lack of Transportation: No Lack of Food: Never True Current Housing: I Have Housing Concerned About Future Housing: No Difficulty Paying Gas/Electric Bills: No Difficulty Paying for Meds: No Currently Unemployed: No Education: High School Diploma/GED Difficulty w/ Childcare or Family Care: No Living arrangements: with family Occupation/Education: occupation Gender identity (if verbalized by the patient): Female Sexual Orientation (if Verbalized by the Patient): Straight or Heterosexual Spiritual care concerns: No Exam Narrative: GENERAL: [Well-appearing, well-nourished, and in no acute distress.] HEAD: [Normocephalic, atraumatic.] EYES: [PERRLA and EOMI.] ENT: Nares clear, no rhinorrhea or epistaxis. Mucous membranes moist. NECK: Supple. CHEST: [Clear to auscultation. No respiratory distress.] HEART: [Regular rate and rhythm]. No murmur heard. [Normal peripheral pulses.] ABDOMEN: [Soft, nondistended], [nontender], [No rigidity or guarding] EXTREMITIES: Normal range of motion. [No edema.] SKIN: Warm, dry, no rash. NEURO: [No focal deficits]. Alert and oriented [x3.] PSYCH: [Normal mood and affect.] Course Vital Signs Vital signs: Vital Signs Temperature 36.4 C 03/18/25 13:21 Pulse Rate 78 03/18/25 13:21 Respiratory Rate 16 03/18/25 13:21 Blood Pressure 137/87 03/18/25 13:21 Pulse Oximetry 98 03/18/25 13:21 Temperature 36.4 C 03/18/25 13:21 Pulse Rate 72 03/18/25 15:16 Respiratory Rate 15 03/18/25 15:16 Blood Pressure 122/79 03/18/25 15:16 Pulse Oximetry 99 03/18/25 15:16 MDM - Female Genitourinary MDM Narrative Medical decision making narrative: 24-year-old female with history of dysmenorrhea and chronic pelvic pain. Patient presents to the emergency department with complaints of painful urination and dysuria. Patient states that she is having left lower quadrant pelvic pain as well. Previously had discussions with her OB GYNs for diagnostic laparoscopic procedure to see if she has endometriosis given her longstanding symptomatology. Patient is also concerned about potential fibroids as her mother has similar symptoms. She has an unremarkable examination was soft nontender nondistended abdomen with normal vital signs. Urinary analysis ordered as well as urinary test. Pelvic ultrasound with left lower quadrant attention was ordered to see if she has any ovarian pathology such as cyst, masses, torsion, identifiable lesions or any fibroids. Patient will be referred back to her OBGYN for follow-up evaluation after workup here in the emergency department assuming safe discharge. Urinalysis shows no signs of active infection. No blood. Pelvic ultrasound shows simple ovarian cyst 23 mm without any need for follow-up. Unremarkable ultrasound of the pelvis otherwise according to Radiology. Patient is safe and stable for discharge home with regular OBGYN follow-up and given prescription for ibuprofen and Tylenol. Medical Records Attestation: I reviewed the patient's medical records. Lab Data Attestation: I reviewed the patient's lab results. Labs: Lab Results 03/18/25 Range/Units 13:37 Urine Color Yellow (Yellow) Urine Appearance Clear (Clear) Urine pH 6.5 (5.0-9.0) Ur Specific [place] 1.020 (1.001-1.035) Urine Protein Negative (Negative) mg/dL Urine Glucose (UA) Negative (Negative) mg/dL Urine Ketones Negative (Negative) mg/dL Ur Blood (Man) Negative (Negative) Urine Nitrate Negative (Negative) Urine Bilirubin Negative (Negative) Urine Urobilinogen 1.0 (<2.0) mg/dL Leukocyte Esterase Rfl Negative (Negative) FRANCY/UL POC Urine HCG, Qual Negative (Negative) Imaging Data Attestation: I personally reviewed and interpreted this imaging study as follows: My impression: Impressions Pelvic/Transvag US 03/18/25 15:05 IMPRESSION: Simple cyst within the left ovary measuring 23 mm in greatest dimension, which does not meet size criteria for follow-up. Otherwise, unremarkable sonographic evaluation of the female pelvis, as detailed above. Discharge Plan Discharge Clinical Impression: Pelvic pain Patient Disposition: Home Condition: Stable Instructions: Antibiotic Form, Pelvic Pain in Women (ED), Dysuria (ED) Additional Instructions: Your ultrasound shows no fibroids but you do have a simple left ovarian cyst without any enlargement or concerning features requiring any follow-up for this. Your urine has no signs of infection or blood. Your symptoms are concerning for potential endometriosis and will need to be evaluated with your OBGYN further. Recommendations at this time are to take Tylenol and ibuprofen scheduled to keep inflammation and pain control until able to discuss this with will be. Return with any emergent concerns. Patient Language: Kyrgyz Prescriptions: New ibuprofen 800 mg tablet 800 mg PO TID PRN (Reason: pain) Qty: 30 0RF acetaminophen [Tylenol Extra Strength] 500 mg tablet 1,000 mg PO TID PRN (Reason: pain) Qty: 30 0RF Follow-up/Referrals: UNKNOWN,DOCTOR [Primary Care Provider] - Time of Disposition: 15:56
--- OUTSIDE RECORDS SUMMARY | 2025-03-18 14:07 | XMS_ITS | Clinical Summary ---
Author Organization [facility] Address [address] [place] [address] Phone Care Team Providers Care Sawmill Tally Clerk Name Role Phone Provider, None Primary Care [...] age to complete this topic Care Teams Sawmill Tally Clerk Relationship Specialty Start Date End Date Provider, None [place] PCP - General 08/21/23
--- NOTE | 2025-03-18 14:21 | PC.NURSE ---
Pt to u/s via w/c at this time.
[2025-03-18 15:16] VITALS: BP 122/79; PULSE 72; RESP 15; O2SAT 99
== END 2025-03-18 16:12 | disposition home or self-care (01) ==
PROVIDERS: Emergency Medicine; Emergency Provider Student in an Organized Health Care Education/Training Program
DX: R10.2 Pelvic and perineal pain (principal); F17.290 Nicotine dependence, other tobacco product, uncomplicated
CPT/HCPCS: 76830; 76856; 81003; 81025; 99284

== ENCOUNTER 2025-03-25 09:19 | Outpatient (CLI) | payer BC, SELFPAY ==
--- OUTSIDE RECORDS SUMMARY | 2025-03-25 09:24 | XMS_ITS | Clinical Summary ---
Author Organization [facility] Address [address] [place] [address] Phone Care Team Providers Care Chip Silo Tender Name Role Phone Provider, None Primary Care [...] age to complete this topic Care Teams Chip Silo Tender Relationship Specialty Start Date End Date Provider, None [place] PCP - General 08/21/23
[2025-03-25 10:30] LABS: Beta HCG Quantitative < 2.39 mIU/ML
== END 2025-03-25 09:20 | disposition home or self-care (01) ==
PROVIDERS: Visit Provider Student in an Organized Health Care Education/Training Program
DX: N92.6 Irregular menstruation, unspecified (principal)
CPT/HCPCS: 36415; 84702

== ENCOUNTER 2025-06-17 21:46 | Emergency (ER) | payer BC, SELFPAY ==
--- OUTSIDE RECORDS SUMMARY | 2025-06-17 21:48 | XMS_ITS | Clinical Summary ---
Author Organization [facility] Address [address] [place] [address] Phone Care Team Providers Care Rouge Sifter Name Role Phone Provider, None Primary Care [...] to technical error Height 175.3 cm (5' 9) 08/21/2023 1:59 PM CDT BMI incorrect due [...] 19+ 3-dose series) 2021 Pap Smear 2023 SARS-COV-2 Immunization ( - 2023- season) 2024 Influenza Immunization (#1) 2025 Respiratory Syncytial Virus (RSV) Immunization (Adult) (1 - 1-dose 75+ series) 2077 Meningococcal Immunization (ACWY) Aged Out No longer eligible based on patient's age to complete this topic Pneumococcal Immunization Combined Aged Out No longer eligible based on patient's age to complete this topic Rotavirus Immunization Aged Out No lo nger eligible based on patient's age to complete this topic Care Teams Rouge Sifter Relationship Specialty Start Date End Date Provider, None [place] PCP - General 08/21/23
[2025-06-17 21:54] VITALS: BP 136/84; PULSE 102; RESP 20; TEMP 36.9; O2SAT 98
--- OUTSIDE RECORDS SUMMARY | 2025-06-17 22:29 | XMS_ITS | Clinical Summary ---
Author Organization [facility] Address [address] [place] [address] Phone Care Team Providers Care Fish Butcher Name Role Phone Provider, None Primary Care [...] age to complete this topic Care Teams Fish Butcher Relationship Specialty Start Date End Date Provider, None [place] PCP - General 08/21/23
[2025-06-17] MEDS: KETOROLAC (*BKC) 60 MG/2 ML VIAL IM (22:35)
[2025-06-17 23:13] LABS: Strep Group A RT-PCR NOT DETECTED (Negative)
--- NOTE | 2025-06-17 23:26 | ED_ITS ---
HPI - Ear Problem General Chief complaint: Ear Stated complaint: Severe left ear pain Time Seen by Provider: 06/17/25 22:04 History of Present Illness HPI Narrative: Patient is a 24-year-old female who presents to the ER with left ear pain. She reports she 1st noticed the pain 2 days ago. Patient reports pain started in her ear and now travels down her jaw and behind her ear. She endorses increased pain with opening and shutting jaw. Patient denies any neck stiffness, recent fevers, difficulty swallowing, or sore throat. She denies any medical history relevant to this ER visit. Related Data Allergies Allergy/AdvReac Type Severity Reaction Status Date / Time No Known Allergies Allergy Verified 06/17/25 21:57 Review of Systems Review of Systems: All systems reviewed & are unremarkable except as noted in HPI and below PMFSH Past Medical History Medical History Encounter for surveillance of other contraceptives No active medical problems Surgical History Surgical History H/O skin graft S/P cholecystectomy Social History Social History Smoking status: Current every day smoker Tobacco type: e-cigarettes/vaping Alcohol intake: current Alcohol use details: SOCIAL EVENTS - NOT WEEKLY Substance use: never Substance use type: does not use Do You Feel Safe in your Home?: Yes Lack of Transportation: No Lack of Food: Never True Current Housing: I Have Housing Concerned About Future Housing: No Difficulty Paying Gas/Electric Bills: No Difficulty Paying for Meds: No Currently Unemployed: No Education: High School Diploma/GED Difficulty w/ Childcare or Family Care: No Living arrangements: with family Occupation/Education: occupation Gender identity (if verbalized by the patient): Female Sexual Orientation (if Verbalized by the Patient): Straight or Heterosexual Spiritual care concerns: No Exam Narrative: GENERAL: Well appearing, well-nourished, non-toxic, in no acute distress. HEAD: Normocephalic, atraumatic. Bilateral tympanic membranes intact, no redness or pus visible NECK: Supple. No adenopathy, no masses. Endorse tenderness with palpation the mastoid and down left neck, small dime-sized palpable abscess to pt's L jaw RESPIRATORY: Airway patent, respirations nonlabored. Clear to auscultation bilaterally, no rales, rhonchi, wheezing. CARDIOVASCULAR: Regular rate and rhythm without murmurs, rubs, or gallops. Peripheral pulses 2+ and equal bilaterally. ABDOMINAL: Soft, nontender, nondistended, no hepatosplenomegaly. Normoactive BS. MUSCULOSKELETAL: Moves all extremities. Strength/ROM intact without gross deformities. SKIN: Warm, dry, normal color. No rashes. NEURO: A&O X3. Speech clear. Cranial nerves II-XII intact. No ataxic movements. PSYCHIATRIC: Appropriate mood and affect. Normal interaction. Course Vital Signs Vital signs: Vital Signs Temperature 36.9 C 06/17/25 21:54 Pulse Rate 102 H 06/17/25 21:54 Respiratory Rate 20 06/17/25 21:54 Blood Pressure 136/84 06/17/25 21:54 Pulse Oximetry 98 06/17/25 21:54 Oxygen Delivery Room Air 06/17/25 21:54 Temperature 36.9 C 06/17/25 21:54 Pulse Rate 102 H 06/17/25 21:54 Respiratory Rate 20 06/17/25 21:54 Blood Pressure 136/84 06/17/25 21:54 Pulse Oximetry 98 06/17/25 21:54 Oxygen Delivery Room Air 06/17/25 21:54 Medical Decision Making MDM Narrative Medical decision making narrative: Patient is a 24-year-old female who presents to the ER with left ear pain. She reports she 1st noticed the pain 2 days ago. Patient reports pain started in her ear and now travels down her jaw and behind her ear. She endorses increased pain with opening and shutting jaw. Patient denies any neck stiffness, recent fevers, difficulty swallowing, or sore throat. She denies any medical history relevant to this ER visit, although she had her left upper wisdom tooth removed a while ago. Labs Ordered: Strep swab Imaging Ordered: None necessary Medications Ordered: Prednisone 40 mg p.o., Toradol 60 mg IM, Augmentin p.o. Results: Patient's strep swab was negative Diagnosis: Dental abscess Patient Education/Shared MDM: Patient is very well appearing so I have little concern for mastoiditis. Results of lab work shared with patient. She endorses improvement of symptoms following medication administration. Patient strongly advised to maintain hydration status upon discharge and follow-up with their PCP as soon as possible. She will be discharged home with a prescription for Augmentin and prednisone. Strict return precautions provided. Patient verbalized understanding and is in agreement with plan. Vital signs stable at time of discharge. All questions answered. Differential Diagnosis Differential Diagnosis: Strep throat, ear infection, tonsillitis, dental abscess Vital Signs Vital Signs: Vital Signs Temperature 36.9 C 06/17/25 21:54 Pulse Rate 102 H 06/17/25 21:54 Respiratory Rate 20 06/17/25 21:54 Blood Pressure 136/84 06/17/25 21:54 Pulse Oximetry 98 06/17/25 21:54 Oxygen Delivery Room Air 06/17/25 21:54 Temperature 36.9 C 06/17/25 21:54 Pulse Rate 102 H 06/17/25 21:54 Respiratory Rate 20 06/17/25 21:54 Blood Pressure 136/84 06/17/25 21:54 Pulse Oximetry 98 06/17/25 21:54 Oxygen Delivery Room Air 06/17/25 21:54 Lab Data Lab results reviewed: Yes I reviewed the patient's lab results. Labs: Lab Results 06/17/25 Range/Units 22:41 Group A Strep (PCR) Not detected (Negative) Discharge Plan Discharge Clinical Impression: Abscess, dental, Mandibular pain Patient Disposition: Home Condition: Stable Instructions: Antibiotic Form, Dental Abscess (ED) Additional Instructions: Please return to the ER with any worsening symptoms. Follow-up with primary care provider as soon as possible. You may take Tylenol and ibuprofen for pain control. You will also be prescribed steroids to help decrease the swelling. Complete your full dose of antibiotics Patient Language: Lithuanian Prescriptions: New amoxicillin-pot clavulanate 875-125 mg tablet 1 tablet PO Q12H Qty: 20 0RF No Action Nexplanon 68 mg implant 1 implant subdermal ONCE Qty: 1 0RF Follow-up/Referrals: Nico Chang MD [Physician] - (primary care provider) UNKNOWN,DOCTOR [Primary Care Provider] - Time of Disposition: 00:06
[2025-06-18 00:27] VITALS: BP 131/71; PULSE 69; RESP 16; TEMP 36.2; O2SAT 97
== END 2025-06-18 00:28 | disposition home or self-care (01) ==
PROVIDERS: Emergency Provider Registered Nurse
DX: K04.7 Periapical abscess without sinus (principal); F17.290 Nicotine dependence, other tobacco product, uncomplicated; Z90.49 Acquired absence of other specified parts of digestive tract
CPT/HCPCS: 87651; 96372; 99283; A9270; J1885; J7512

== ENCOUNTER 2025-06-20 12:50 | Emergency (ER) | payer BC, SELFPAY ==
--- OUTSIDE RECORDS SUMMARY | 2025-06-20 12:52 | XMS_ITS | Clinical Summary ---
Author Organization [facility] Address [address] [place] [address] Phone Care Team Providers Care Border Machine Operator Name Role Phone Provider, None Primary Care [...] age to complete this topic Care Teams Border Machine Operator Relationship Specialty Start Date End Date Provider, None [place] PCP - General 08/21/23
[2025-06-20 12:58] VITALS: BP 146/95; PULSE 75; RESP 18; TEMP 36.6; O2SAT 98
[2025-06-20 13:25] VITALS: BP 128/57; PULSE 78; RESP 16; TEMP 36.7; O2SAT 99
--- OUTSIDE RECORDS SUMMARY | 2025-06-20 13:32 | XMS_ITS | Clinical Summary ---
Author Organization [facility] Address [address] [place] [address] Phone Care Team Providers Care Wind Up Worker Name Role Phone Provider, None Primary Care [...] age to complete this topic Care Teams Wind Up Worker Relationship Specialty Start Date End Date Provider, None [place] PCP - General 08/21/23
--- NOTE | 2025-06-20 13:40 | ED.GENADULT ---
HPI - General Adult General Chief complaint: Neck Pain/Injury Stated complaint: jaw pain, fever Time Seen by Provider: 06/20/25 13:16 History of Present Illness HPI narrative: Patient is a 24-year-old female who presents ER with discomfort to left here in jaw. Has a area behind her left mandible that is been swollen over last few days. Associated pain in left ear. No dental pain. No difficulty breathing or swelling. She has had 48 hours worth of Augmentin and is not improving. She reports low-grade fever last night. No drainage from her ear. No ringing in the ear or difficulty hearing. Related Data Allergies Allergy/AdvReac Type Severity Reaction Status Date / Time No Known Allergies Allergy Verified 06/20/25 13:41 Review of Systems Constitutional: Constitutional: Reports no additional constitutional complaints ENT: Reports system reviewed and no additional complaints, except as documented PMFSH Past Medical History Medical History Encounter for surveillance of other contraceptives No active medical problems Surgical History Surgical History H/O skin graft S/P cholecystectomy Social History Social History Smoking status: Current every day smoker Tobacco type: e-cigarettes/vaping Alcohol intake: current Alcohol use details: SOCIAL EVENTS - NOT WEEKLY Substance use: never Substance use type: does not use Do You Feel Safe in your Home?: Yes Lack of Transportation: No Lack of Food: Never True Current Housing: I Have Housing Concerned About Future Housing: No Difficulty Paying Gas/Electric Bills: No Difficulty Paying for Meds: No Currently Unemployed: No Education: High School Diploma/GED Difficulty w/ Childcare or Family Care: No Living arrangements: with family Occupation/Education: occupation Gender identity (if verbalized by the patient): Female Sexual Orientation (if Verbalized by the Patient): Straight or Heterosexual Spiritual care concerns: No Exam Narrative: GENERAL: Well-appearing, well-nourished, and in no acute distress. HEAD: Normocephalic, atraumatic. ENT: Mucous membranes moist. Bulging erythematous tympanic membrane on the left side with normal ear canal. Right tympanic membrane normal. No dental pain with evaluation or abscess. There is an erupting molar in area of tooth 17. NECK: Mild lymphadenopathy behind the angle of the mandible on left side. Otherwise neck is supple. Full range of motion. EXTREMITIES: Normal range of motion. No edema. NEURO: Alert and oriented x3. PSYCH: Normal mood and affect. Course Vital Signs Vital signs: Vital Signs Temperature 97.8 F 06/20/25 12:58 Pulse Rate 75 06/20/25 12:58 Respiratory Rate 18 06/20/25 12:58 Blood Pressure 146/95 H 06/20/25 12:58 Pulse Oximetry 98 06/20/25 12:58 Oxygen Delivery Room Air 06/20/25 12:58 Temperature 98.1 F 06/20/25 13:25 Pulse Rate 78 06/20/25 13:25 Respiratory Rate 16 06/20/25 13:25 Blood Pressure 128/57 L 06/20/25 13:25 Pulse Oximetry 99 06/20/25 13:25 Oxygen Delivery Room Air 06/20/25 12:58 Medical Decision Making MDM Narrative Medical decision making narrative: Discussed treatment plan. Discontinue Augmentin, start cefuroxime. Vital Signs Vital Signs: Vital Signs Temperature 97.8 F 06/20/25 12:58 Pulse Rate 75 06/20/25 12:58 Respiratory Rate 18 06/20/25 12:58 Blood Pressure 146/95 H 06/20/25 12:58 Pulse Oximetry 98 06/20/25 12:58 Oxygen Delivery Room Air 06/20/25 12:58 Temperature 98.1 F 06/20/25 13:25 Pulse Rate 78 06/20/25 13:25 Respiratory Rate 16 06/20/25 13:25 Blood Pressure 128/57 L 06/20/25 13:25 Pulse Oximetry 99 06/20/25 13:25 Oxygen Delivery Room Air 06/20/25 12:58 Discharge Plan Discharge Clinical Impression: Otitis media Patient Disposition: Home Condition: Stable Instructions: Antibiotic Form, Ear Infection (ED) Additional Instructions: Return ER if you have increased pain, you can hear, have drainage from your, or you have additional concerns. Follow-up with an Ear Nose and Throat physician. Patient Language: Slovenian Prescriptions: New cefuroxime axetil 500 mg tablet 500 mg PO BID Qty: 20 0RF hydrocodone-acetaminophen 5-325 mg tablet 1 tablet PO Q6H PRN (Reason: pain) Qty: 12 0RF No Action Nexplanon 68 mg implant 1 implant subdermal ONCE Qty: 1 0RF amoxicillin-pot clavulanate 875-125 mg tablet 1 tablet PO Q12H Qty: 20 0RF prednisone 20 mg tablet 20 mg PO BID Qty: 10 0RF Follow-up/Referrals: Elias Nayak MD [Physician] - 1 Week UNKNOWN,DOCTOR [Primary Care Provider] -
[2025-06-20 14:06] VITALS: BP 126/95; PULSE 80; RESP 18; O2SAT 100
== END 2025-06-20 14:08 | disposition home or self-care (01) ==
PROVIDERS: Emergency Provider Emergency Medicine
DX: H66.92 Otitis media, unspecified, left ear (principal); F17.290 Nicotine dependence, other tobacco product, uncomplicated; Z90.49 Acquired absence of other specified parts of digestive tract
CPT/HCPCS: 99283

== ENCOUNTER 2025-06-24 09:07 | Inpatient (IN) | payer BC, SELFPAY ==
[2025-06-24] VITALS (8 sets, daily range): BP systolic 105–143; BP diastolic 58–98; PULSE 53–81; RESP 14–18; TEMP 35.7–36.8; O2SAT 98–100; BMI 29.9
--- NOTE | ~2025-06-24 | MR_ITS ---
EXAMINATION: MR brain IAC wo/w con DATE: 06/27/2025 14:52 INDICATION: Otalgia of left ear TECHNIQUE: Magnetic resonance imaging (MRI) of the brain and brainstem was performed without and with 19 mL Multihance intravenous contrast. Sequences included sagittal and axial T1-weighted FSE, axial diffusion-weighted FS EPI, axial 3D SWAN, axial T2-weighted FLAIR Propeller, axial T2-weighted Propel ler, small [id number] coronal FIESTA, small kxtie-ph-khff coronal T1-weighted FSE, and small field -of-view axial T1-weighted SPGR. Postcontrast sequences included axial T1-weighted FSE, small field-o f-view coronal T1-weighted FSE, and small uwxly-[id number]-dlll axial T1-weighted SPGR. Apparent diffusion co efficient (ADC) maps were created. COMPARISON: Head CT dated 07/10/2024 FINDINGS: There are no areas of restricted diffusion to suggest acute infarction. No intracranial hemorrhage or abnormal intracranial mass lesion. There are no intraparenchymal signal abnormalities seen on the ot her pulse sequences. The ventricles are symmetric and normal in size. There are no abnormal extra-axi al fluid collections. Flow voids are seen in the cerebral arteries on the T2-weighted sequences along with contrast enhancement on the post contrast imaging consistent with their expected patency. Moder ate sized left mastoid effusion. Normal seventh/eighth cranial nerve complexes. No cerebellopontine angles masses. No definitive middle ear fluid on either the left or right nor right-sided mastoid flu id. Visualized orbits and soft tissues are unremarkable. There are no areas of abnormal enhancement o n the post contrast images. IMPRESSION: 1. Moderate-sized left mastoid effusion. Otherwise unremarkable brain MR. Reviewed, dictated and finalized at location A.
--- NOTE | ~2025-06-24 | CT_ITS ---
EXAMINATION: CT soft tissue neck w con DATE: 06/24/2025 10:40 INDICATION: Left ear pain TECHNIQUE: Computed tomography (CT) of the neck was performed with 75 mL Omnipaque-350 intravenous co ntrast. Automated exposure control and iterative reconstruction technique were employed. The dose-jerardo gth product was 495.93 mGy-cm. COMPARISON: None FINDINGS: There is asymmetric skin thickening at the left external auditory canal when compared with the right with some associated mild stranding in the surrounding fat consistent with likely otitis externa. Mas toid aircells and middle ear cavities are clear.Orbits are normal. The paranasal sinuses are clear. S ubmandibular and parotid glands are normal and symmetric. Thyroid gland is unremarkable. There are sc attered normal-sized lymph nodes in the neck, no pathologically enlarged lymphadenopathy. The lymph n odes at the left parotid gland and cephalad aspect of the left posterior triangle are however slightl y larger than on the right and are likely reactive. No abscess or masses identified. The vasculature is patent and normal in caliber. Airway is unremarkable. Superior mediastinum is unremarkable. Lung a pices are normal. Cervical spine is normal. IMPRESSION: 1. Likely left otitis externa with immediately surrounding mild likely reactive lymphadenopathy. Reviewed, dictated and finalized at location A.
--- OUTSIDE RECORDS SUMMARY | 2025-06-24 09:47 | XMS_ITS | Clinical Summary ---
Author Organization [facility] Address [address] [place] [address] Phone Care Team Providers Care Equine Internship Name Role Phone Provider, None Primary Care [...] age to complete this topic Care Teams Equine Internship Relationship Specialty Start Date End Date Provider, None [place] PCP - General 08/21/23
[2025-06-24 10:01] LABS: Hematocrit 39.8 % (37.0-47.0); Hemoglobin 13.6 g/dL (12.0-15.0); Immature Granulocyte Percent A 0.4 % (0-0.5); Lymphocytes Absolute Auto 3.00 K/mm3 (0.9-3.2); Mean Corpuscular HGB Conc 34.2 g/dl (32-36); Mean Corpuscular Hemoglobin 30.2 pg (26-34); Mean Corpuscular Volume 88.4 fl (80-100); Nucleated Red Blood Cells Absolute Auto 0.000 K/mm3 (0.0-0.012); Nucleated Red Blood Cells Perc 0.0 % (0.0-0.2); Platelet Count Result 251 k/mm3 (150-375); Red Blood Count 4.50 M/mm3 (4.2-5.4); White Blood Count 8.2 K/mm3 (4.5-10.0)
--- NOTE | 2025-06-24 10:01 | ED.NECK ---
HPI - Neck Pain/Injury General Chief Complaint: Neck Pain/Injury Stated Complaint: sent by pmd for neck CT Time Seen by Provider: 06/24/25 09:35 History of Present Illness HPI Narrative: Patient is a 24-year-old female who presents to the ER with left ear pain. She was seen in the ER on 06/17/2025 and 06/20/2025. Pt was placed on two different antibiotics and has seen ENT twice. ENT, Dr. Nayak, sent pt to the ER with requests for pt to have a soft tissue CT neck scan. Pt reports she 1st noticed the pain about a week ago. Patient reports pain started in her ear and travels down her L jaw and behind her L ear. She endorses increased pain with opening and shutting jaw. Patient denies any neck stiffness, recent fevers, difficulty swallowing, or sore throat. She denies any medical history relevant to this ER visit. Related Data Allergies Allergy/AdvReac Type Severity Reaction Status Date / Time hydrocodone Allergy Mild Nausea Verified 06/24/25 13:44 Review of Systems Review of Systems: All systems reviewed & are unremarkable except as noted in HPI and below PMFSH Past Medical History Medical History Depression Anxiety Migraine Nabothian cyst Surgical History Surgical History H/O skin graft S/P cholecystectomy Family History Family History (Updated 06/24/25 @ 13:41 by Kristine Palencia RN) Other Unknown family medical history Social History Social History Smoking status: Current every day smoker Alcohol intake: current Alcohol use details: SOCIAL EVENTS - NOT WEEKLY Substance use: never Substance use type: does not use Do You Feel Safe in your Home?: Yes Lack of Transportation: No Lack of Food: Never True Current Housing: I Have Housing Concerned About Future Housing: No Difficulty Paying Gas/Electric Bills: No Difficulty Paying for Meds: No Currently Unemployed: No Education: High School Diploma/GED Difficulty w/ Childcare or Family Care: No Living arrangements: with family Occupation/Education: occupation Gender identity (if verbalized by the patient): Female Sexual Orientation (if Verbalized by the Patient): Straight or Heterosexual Spiritual care concerns: No Exam Narrative: GENERAL: Well appearing, well-nourished, non-toxic, in no acute distress. HEAD: Normocephalic, atraumatic. Left-sided ear mildly erythematous, ear canal and tympanic membrane middle ear appears clear. NECK: Supple. Mild cervical lymphadenopathy, + pain to palpation L side RESPIRATORY: Airway patent, respirations nonlabored. Clear to auscultation bilaterally, no rales, rhonchi, wheezing. CARDIOVASCULAR: Regular rate and rhythm without murmurs, rubs, or gallops. Peripheral pulses 2+ and equal bilaterally. ABDOMINAL: Soft, nontender, nondistended, no hepatosplenomegaly. Normoactive BS. MUSCULOSKELETAL: Moves all extremities. Strength/ROM intact without gross deformities. SKIN: Warm, dry, normal color. No rashes. NEURO: A&O X3. Speech clear. Cranial nerves II-XII intact. No ataxic movements. PSYCHIATRIC: Appropriate mood and affect. Normal interaction. Course Vital Signs Vital signs: Vital Signs Temperature 36.6 C 06/24/25 09:37 Pulse Rate 77 06/24/25 09:37 Respiratory Rate 14 06/24/25 09:37 Blood Pressure 143/98 H 06/24/25 09:37 Pulse Oximetry 99 06/24/25 09:37 Oxygen Delivery Room Air 06/24/25 09:37 Temperature 36.0 C L 06/24/25 14:00 Pulse Rate 53 L 06/24/25 14:00 Respiratory Rate 18 06/24/25 14:00 Blood Pressure 116/66 06/24/25 14:00 Pulse Oximetry 100 06/24/25 14:00 Oxygen Delivery Room Air 06/24/25 09:37 MDM - Neck Pain/Injury MDM Narrative Medical decision making narrative: Patient is a 24-year-old female who presents to the ER with left ear pain. She was seen in the ER on 06/17/2025 and 06/20/2025. Pt was placed on two different antibiotics and has seen ENT twice. ENT, Dr. Nayak, sent pt to the ER with requests for pt to have a soft tissue CT neck scan. Pt reports she 1st noticed the pain about a week ago. Patient reports pain started in her ear and travels down her L jaw and behind her L ear. She endorses increased pain with opening and shutting jaw. Patient denies any neck stiffness, recent fevers, difficulty swallowing, or sore throat. She denies any medical history relevant to this ER visit. Labs Ordered: CBC, CMP, lactic acid, PTT, INR, CRP, blood cultures Imaging Ordered: CT soft tissue Medications Ordered: Decadron 10 mg IV, sodium 2 L normal saline IV bolus, Dilaudid 0.5 mg IV Results: Pt's CT scan indicate There is asymmetric skin thickening at the left external auditory canal when compared with the right with some associated mild stranding in the surrounding fat consistent with likely otitis externa. Mastoid aircells and middle ear cavities are clear.Orbits are normal. The paranasal sinuses are clear. Submandibular and parotid glands are normal and symmetric. Thyroid gland is unremarkable. There are scattered normal-sized lymph nodes in the neck, no pathologically enlarged lymphadenopathy. The lymph nodes at the left parotid gland and cephalad aspect of the left posterior triangle are however slightly larger than on the right and are likely reactive. No abscess or masses identified. The vasculature is patent and normal in caliber. Airway is unremarkable. Superior mediastinum is unremarkable. Lung apices are normal. Cervical spine is normal. Diagnosis: L external otitis with cellulitis Consults: 1100-ENT, Dr. Nayak. He advised pt should be admitted for IV antibiotics and pain control, as pt has failed outpatient therapy. Dr. Nayak would like pt on Levofloxacin IV. He reports pt can receive IV steroids and IV pain medication. MDM: Results of imaging and lab work shared with patient. It was advised patient be admitted to the hospital for further evaluation and treatment. Patient verbalized understanding and is in agreement with plan. Differential Diagnosis Differential diagnosis: Likely other (Otitis media, otitis externa, lymphadenopathy, cellulitis) Lab Data Attestation: I reviewed the patient's lab results. 06/24/25 09:55 06/24/25 09:55 Labs: Lab Results 06/24/25 Range/Units 09:55 WBC 8.2 (4.5-10.0) K/mm3 RBC 4.50 (4.2-5.4) M/mm3 Hgb 13.6 (12.0-15.0) g/dL Hct 39.8 (37.0-47.0) % MCV 88.4 (80-100) fl MCH 30.2 (26-34) pg MCHC 34.2 (32-36) g/dl RDW 12.1 (11.5-14.5) % Plt Count 251 (150-375) k/mm3 MPV 9.4 (7.4-10.4) fl Immature Gran % (Auto) 0.4 (0-0.5) % Neut % (Auto) 52.2 (45.5-73.1) % Lymph % (Auto) 36.7 (18.3-44.2) % [place] % (Auto) 6.4 (2.6-8.5) % Eos % (Auto) 3.8 (0-4.4) % Baso % (Auto) 0.5 (0.2-1.2) % Lymph # (Auto) 3.00 (0.9-3.2) K/mm3 [place] # (Auto) 0.5 (0.1-0.6) K/mm3 Eos # (Auto) 0.3 (0-0.3) K/mm3 Baso # (Auto) 0.0 (0.0-0.1) K/mm3 Abs Immat Gran (auto) 0.03 (0.00-0.031) K/mm3 Absolute Neuts (auto) 4.3 (1.3-6.7) K/mm3 Absolute Nucleated RBC 0.000 (0.0-0.012) K/mm3 Nucleated RBC % 0.0 (0.0-0.2) % PT 12.9 (11.1-14.7) Seconds INR 1.0 APTT 29.4 (22.3-36.8) Seconds Sodium 136 L (137-145) mmol/L Potassium 3.5 (3.4-5.0) mmol/L Chloride 103 (98-107) mmol/L Carbon Dioxide 24 (22-30) mmol/L Anion Gap 9 (4-12) mmol/L BUN 7 D (7-17) mg/dL Creatinine 0.78 (0.7-1.0) mg/dL Estim Creat Clear Calc 119 ml/min Estimated GFR > 60 (59 - ) Glucose 169 H (65-110) mg/dL Calcium 8.7 (8.4-10.2) mg/dL Total Bilirubin 0.6 (0.2-1.3) mg/dL AST 31 (14-36) U/L ALT 27 (6-35) U/L Alkaline Phosphatase 76 (38-126) U/L C-Reactive Protein 2.8 H (<1.0) mg/dL Total Protein 6.7 (6.3-8.2) g/dL Albumin 4.0 (3.5-5.1) g/dL Imaging Data Attestation: I personally reviewed and interpreted this imaging study as follows: Radiologist's impression: Impressions Soft Tissue Neck CT 06/24/25 10:59 IMPRESSION: 1. Likely left otitis externa with immediately surrounding mild likely reactive lymphadenopathy. Discharge Plan Discharge Clinical Impression: Lymphadenopathy Otitis externa Qualifiers: Otitis externa type: unspecified type Chronicity: acute Laterality: right Qualified Code(s): H60.501 - Unspecified acute noninfective otitis externa, right ear Patient Disposition: Still a Patient Condition: Stable
[2025-06-24 10:21] LABS: Alanine Aminotransferase 27 U/L (6-35); Albumin Level 4.0 g/dL (3.5-5.1); Alkaline Phosphatase 76 U/L (38-126); Anion Gap 9 mmol/L (4-12); Aspartate Amino Transferase 31 U/L (14-36); Bilirubin,Total 0.6 mg/dL (0.2-1.3); Blood Urea Nitrogen 7 mg/dL (7-17); Calcium 8.7 mg/dL (8.4-10.2); Carbon Dioxide 24 mmol/L (22-30); Chloride 103 mmol/L (98-107); Estimated CRCL calculation 119 ml/min; Estimated Glomerular Filt Rate > 60; Glucose 169 mg/dL (65-110); Potassium 3.5 mmol/L (3.4-5.0); Sodium 136 mmol/L (137-145); Total Protein 6.7 g/dL (6.3-8.2)
[2025-06-24] MEDS: HYDROmorphone HCL INJ (*CRX) 1 MG/ML SYR 0.5 MG IV PUSH (10:52)
[2025-06-24] MEDS: SODIUM CHLORIDE 0.9% IV 1,000 ML 999 ML IV CONT ×2 (10:53→12:12)
[2025-06-24] MEDS: dexAMETHasone SOD PHOS INJ 10 MG/ML 1 ML VIAL IV PUSH (12:11)
--- OUTSIDE RECORDS SUMMARY | 2025-06-24 12:33 | XMS_ITS | Clinical Summary ---
Author Organization [facility] Address [address] [place] [address] Phone Care Team Providers Care Enamel Finisher Name Role Phone Provider, None Primary Care [...] age to complete this topic Care Teams Enamel Finisher Relationship Specialty Start Date End Date Provider, None [place] PCP - General 08/21/23
[2025-06-24 12:49] LABS: INR 1.0; Prothrombin Time 12.9 Seconds (11.1-14.7)
[2025-06-24] MEDS: levoFLOXacin 750 MG/D5W 150 ML 750 MG/150 ML BAG 100 MG IVPB (12:49)
[2025-06-24 12:50] LABS: Partial Thromboplastin Time 29.4 Seconds (22.3-36.8)
--- NOTE | 2025-06-24 12:52 | PM.IMHP ---
H&P: HPI History of Present Illness Date/Time: 06/24/25 12:52 Chief Complaint: Facial Pain Narrative: 24 y/o F with PMH of migraines, depression, and anxiety presents here with facial pain. The patient presents here from home for further evaluation of left facial pain. She reports that has been ongoing for the past week. She was initially started with left ear pain which over 48 hours began to radiate into her jaw and behind her left ear for which she sought care for on 06/17. At that time she had reported it had been ongoing since 06/15. She was diagnosed with a dental abscess and discharged home with Augmentin and prednisone. She return to the emergency department on 06/20 for continued discomfort to her left jaw line and worsening swelling to her left mandible. She had also developed a low-grade fever. Her antibiotics for exchanged to cefuroxime and she was discharged home. She was able to follow-up with ENT on 06/22. Provider at that time recommended increasing hydration, sour candies to assist with milking the gland, pain medication, and a CT in 1 week if symptoms not improving. Patient also instructed to contact provider if she develops any lesions that she would need to be started on antivirals. She then followed up again with ENT today on 06/24. During this visit it was noted that the patient had redness to the left side of her neck and continued ear pain. Otoscope examination was improved however given the redness and severe neck pain, the patient was directed to the emergency department for a CT scan. CT revealed left otitis externa with immediate surrounding mild likely reactive lymphadenopathy. Given the patient has failed outpatient antibiotics, ENT recommended inpatient admission for IV antibiotics (specifically Levaquin), steroids, and IV pain medications. The patient currently denies fever, chills, or body aches. Initial VS at presentation: 98? F, HR 77, R 14, 143/98, and 99% on RA. ED workup showed: No leukocytosis, no anemia, normal coags, sodium 136, creatinine 0.78 and normal GFR, glucose 169. See CT impression above in HPI. Review of Systems Review of Systems: All systems reviewed & are unremarkable except as noted in HPI and below PMFSH Past Medical History Medical History Depression Anxiety Migraine Nabothian cyst Surgical History Surgical History H/O skin graft S/P cholecystectomy Family History Family History (Updated 06/24/25 @ 13:41 by Kristine Palencia RN) Other Unknown family medical history Social History Social History Smoking status: Current every day smoker Alcohol intake: current Alcohol use details: SOCIAL EVENTS - NOT WEEKLY Substance use: never Substance use type: does not use Do You Feel Safe in your Home?: Yes Lack of Transportation: No Lack of Food: Never True Current Housing: I Have Housing Concerned About Future Housing: No Difficulty Paying Gas/Electric Bills: No Difficulty Paying for Meds: No Currently Unemployed: No Education: High School Diploma/GED Difficulty w/ Childcare or Family Care: No Living arrangements: with family Occupation/Education: occupation Gender identity (if verbalized by the patient): Female Sexual Orientation (if Verbalized by the Patient): Straight or Heterosexual Spiritual care concerns: No Meds Home Medications and Allergies Home Medications ?Medication ?Instructions ?Recorded ?Confirmed ?Type oxycodone 5 mg tablet 5 mg PO QHS pain #2 tabs 06/22/25 06/24/25 Rx Allergies Allergy/AdvReac Type Severity Reaction Status Date / Time hydrocodone Allergy Mild Nausea Verified 06/24/25 13:44 Vital Signs Vital Signs - 24 hr 06/24/25 09:37 06/24/25 10:56 06/24/25 11:17 Temperature 98 F Pulse Rate 77 81 59 L Respiratory Rate 14 16 16 Blood Pressure 143/98 H 124/81 120/66 Pulse Oximetry 99 98 100 Oxygen Delivery Room Air 06/24/25 11:32 06/24/25 12:00 06/24/25 12:20 Temperature 98.2 F Pulse Rate 58 L 58 L 63 Respiratory Rate 16 16 18 Blood Pressure 111/70 105/67 128/92 H Pulse Oximetry 98 100 100 Oxygen Delivery Exam Const: Other: , young adult, female, uncomfortable, no acute distress HENMT: Face/Nose/Sinus: Normal nares present Mouth: Yes moist mucous membranes Other: Difficult oral exam secondary to pain. Right TM consistent with serous effusion, no erythema or tenderness on exam. Left TMA injected, bulging, and swelling noted to the ear canal. Significant tenderness with traction of the here for exam. Eyes: General: appearance normal, both eyes and all related structures Sclera: sclerae normal Pupils: Equal, round and reactive pupils present EOM: EOMs intact bilaterally Neck: Lymphatic: lymphadenopathy Other: Left-sided lymphadenopathy noted, worse near the parotid region and tonsillar region Resp: Effort & Inspection: normal respiratory effort Auscultation: clear to auscultation bilaterally Cardio: Rate: regular rate Rhythm: regular rhythm Other: S1-S2 present without murmur, rub, ectopy Skin: General skin exam: normal color and no rashes or lesions noted Wounds: no wounds Neuro: Speech: normal speech Motor exam (neuro): 5/5 motor strength present throughout Sensory Exam: normal sensation Other: A&O x4 Extrem: General: normal to inspection Psych: Mental Status: mental status grossly normal Affect: normal affect Other: Good insight and judgment, pleasant H&P: Results Labs Labs: Short CBC 06/24/25 Range/Units 09:55 WBC 8.2 (4.5-10.0) K/mm3 Hgb 13.6 (12.0-15.0) g/dL Hct 39.8 (37.0-47.0) % Plt Count 251 (150-375) k/mm3 BMP 06/24/25 09:55 Sodium 136 L Potassium 3.5 Chloride 103 Carbon Dioxide 24 BUN 7 D Creatinine 0.78 Glucose 169 H Calcium 8.7 Liver Function 06/24/25 Range/Units 09:55 Total Bilirubin 0.6 (0.2-1.3) mg/dL AST 31 (14-36) U/L ALT 27 (6-35) U/L Alkaline Phosphatase 76 (38-126) U/L Albumin 4.0 (3.5-5.1) g/dL Assessment and Plan Assessment and plan (1) Otitis externa: Qualifiers: Chronicity: acute Laterality: right Otitis externa type: unspecified type Qualified Code(s): H60.501 - Unspecified acute noninfective otitis externa, right ear Code(s): H60.90 - Unspecified otitis externa, unspecified ear Status: Acute Assessment and Plan: - ENT has seen patient outpatient today, 06/24. Spoke with ED provider and recommended inpatient admission for IV antibiotics (specifically Levaquin), steroids, and IV pain medications. Has been consulted inpatient. Started on Levaquin on 06/24 Analgesics p.r.n. Started on steroid course: Prednisone 40 mg x 5 days - blood cultures obtained on 06/24, follow - monitor for clinical improvement (2) Otalgia of left ear: Code(s): H92.02 - Otalgia, left ear Status: Acute Assessment and Plan: - see above (3) Lymphadenopathy: Code(s): R59.1 - Generalized enlarged lymph nodes Status: Acute Assessment and Plan: -see above Plan Diet: regular GI Prophylaxis: n/a DVT Prophylaxis: low risk and n/a IV fluids: 2L bolus -> 125 mL/hr x1L Lines/Tubes: Peripheral IV Code Status: Full code Quality If No VTE Prophylaxis Answer both mechanical and pharmacologic: Reason no mechanical VTE proph: low risk/not indicated Reason no pharmacologic proph: low risk/not indicated Hospitalist MIPS Advance Care Plan I have confirmed that the patient's Advanced Care Plan is present, code status is documented, or surrogate decision maker is listed in patient medical record.: Yes Medication Reconciliation I have utilized all available resources to obtain, update and review the patients current medications (includes all prescriptions, OTC, herbals, cannabis, and nutritional supplements).: Yes
[2025-06-24 13:20] LABS: CRP 2.8 mg/dL (<1.0)
--- NOTE | 2025-06-24 13:47 | ADMGEN ---
This patient, Bettina Clayton, was admitted to 3 Med Surg Room 304-01. Patient/family oriented to hospital policies and general routines including ID bracelet, bed and alarms, visiting hours, pain management, procedures, bathroom and other care routines, personal items, smoking policy, room service/diet, and visiting hours. Information on how to activate the Rapid Response Team has been discussed. Patient/Family are encouraged to report perceived risks to care and to ask questions if they do not understand what they are told or what they should do. Received report from [facility].
[2025-06-24] MEDS: HYDROmorphone HCL INJ (*CRX) 1 MG/ML SYR 0.75 MG IV PUSH ×2 (13:57→20:27)
[2025-06-24] MEDS: SODIUM CHLORIDE 0.9% IV 1,000 ML 125 ML IV CONT (18:14)
[2025-06-24] MEDS: ONDANSETRON INJ 4 MG/2 ML VIAL IV PUSH (22:10)
[2025-06-25 04:30] VITALS: BP 114/64; PULSE 54; RESP 18; TEMP 35.9; O2SAT 97
[2025-06-25] MEDS: ONDANSETRON INJ 4 MG/2 ML VIAL IV PUSH (04:45)
[2025-06-25] MEDS: HYDROmorphone HCL INJ (*CRX) 1 MG/ML SYR 0.75 MG IV PUSH ×4 (04:45→19:23)
[2025-06-25 06:54] LABS: Hematocrit 41.4 % (37.0-47.0); Hemoglobin 14.0 g/dL (12.0-15.0); Immature Granulocyte Percent A 0.6 % (0-0.5); Lymphocytes Absolute Auto 1.97 K/mm3 (0.9-3.2); Mean Corpuscular HGB Conc 33.8 g/dl (32-36); Mean Corpuscular Hemoglobin 30.2 pg (26-34); Mean Corpuscular Volume 89.4 fl (80-100); Nucleated Red Blood Cells Absolute Auto 0.000 K/mm3 (0.0-0.012); Nucleated Red Blood Cells Perc 0.0 % (0.0-0.2); Platelet Count Result 304 k/mm3 (150-375); Red Blood Count 4.63 M/mm3 (4.2-5.4); White Blood Count 10.8 K/mm3 (4.5-10.0)
--- NOTE | 2025-06-25 06:56 | P.PNIM_ITS ---
Progress Note: A&P Assessment and Plan (1) Otitis externa: Qualifiers: Chronicity: acute Laterality: right Otitis externa type: unspecified type Qualified Code(s): H60.501 - Unspecified acute noninfective otitis externa, right ear Code(s): H60.90 - Unspecified otitis externa, unspecified ear Status: Acute Assessment and Plan: * ENT has seen patient outpatient today, 06/24. Spoke with ED provider and recommended inpatient admission for IV antibiotics (specifically Levaquin), steroids, and IV pain medications. Has been consulted inpatient. * Started on Levaquin on 06/24 * Analgesics p.r.n. * Started on steroid course: Prednisone 40 mg x 5 days * blood cultures pending, drawn on 06/24 * monitor for clinical improvement * ENT consult pending (2) Otalgia of left ear: Code(s): H92.02 - Otalgia, left ear Status: Acute Assessment and Plan: - see above (3) Lymphadenopathy: Code(s): R59.1 - Generalized enlarged lymph nodes Status: Acute Assessment and Plan: -see above Plan Diet: regular GI Prophylaxis: n/a DVT Prophylaxis: low risk and n/a IV fluids: 2L bolus -> 125 mL/hr x1L Lines/Tubes: Peripheral IV Code Status: Full code Subjective Date/time seen: 06/25/25 06:56 Interval history: 24 y/o F with PMH of migraines, depression, and anxiety presents here with facial pain. 06/25/2025 Patient sitting comfortably in bed at time of exam. ENT to be consulted. Continue IV Levaquin, steroids, and IV pain meds. She states that her ear feels better today - denies any hearing changes, balance issues, headaches today. R TM remains consistent with serous effusion, L TM injected with swelling to ear canal. Blood cultures pending, patient has no other concerns or complaints. Review of Systems Review of Systems: All systems reviewed & are unremarkable except as noted in HPI and below Exam Const: Other: , young adult, female, uncomfortable, no acute distress HENMT: Face/Nose/Sinus: Normal nares present Mouth: Yes moist mucous membranes Other: Difficult oral exam secondary to pain. Right TM consistent with serous effusion, no erythema or tenderness on exam. Left TMA injected, bulging, and swelling noted to the ear canal. Significant tenderness with traction of the here for exam. Eyes: General: appearance normal, both eyes and all related structures Sclera: sclerae normal Pupils: Equal, round and reactive pupils present EOM: EOMs intact bilaterally Neck: Lymphatic: lymphadenopathy Other: Left-sided lymphadenopathy noted, worse near the parotid region and tonsillar region Resp: Effort & Inspection: normal respiratory effort Auscultation: clear to auscultation bilaterally Cardio: Rate: regular rate Rhythm: regular rhythm Other: S1-S2 present without murmur, rub, ectopy Skin: General skin exam: normal color and no rashes or lesions noted Wounds: no wounds Neuro: Cranial nerves: Yes Equal, round and reactive pupils present Speech: normal speech Motor exam (neuro): 5/5 motor strength present throughout Sensory Exam: normal sensation Other: A&O x4 Extrem: General: normal to inspection Psych: Mental Status: mental status grossly normal Affect: normal affect Other: Good insight and judgment, pleasant Objective Data Vital Signs Vital Signs: Vital Signs - 24 hr 06/24/25 09:37 06/24/25 10:56 06/24/25 11:17 Temperature 98 F Pulse Rate 77 81 59 L Respiratory Rate 14 16 16 Blood Pressure 143/98 H 124/81 120/66 Pulse Oximetry 99 98 100 Oxygen Delivery Room Air 06/24/25 11:32 06/24/25 12:00 06/24/25 12:20 Temperature 98.2 F Pulse Rate 58 L 58 L 63 Respiratory Rate 16 16 18 Blood Pressure 111/70 105/67 128/92 H Pulse Oximetry 98 100 100 Oxygen Delivery 06/24/25 14:00 06/24/25 20:00 06/25/25 04:30 Temperature 96.8 F L 96.3 F L 96.6 F L Pulse Rate 53 L 58 L 54 L Respiratory Rate 18 18 18 Blood Pressure 116/66 118/58 L 114/64 Pulse Oximetry 100 98 97 Oxygen Delivery Intake/Output Intake/Output: Intake & Output 06/22/25 06/23/25 06/24/25 06/25/25 23:59 23:59 23:59 23:59 Intake Total 2240 640 Balance 2240 640 Meds/Results Medications: Active Medications Generic Name Dose Route Start Last Admin Trade Name Freq PRN Reason Stop Dose Admin Acetaminophen 650 mg 06/24/25 13:09 Acetaminophen 325 Mg Tablet PO Q6H PRN Mild Pain (1-5) Or Fever Hydromorphone HCl 0.75 mg 06/24/25 13:30 06/25/25 04:45 Hydromorphone Hcl Inj (*Crx) 1 Mg/Ml Syr IV PUSH 0.75 mg Q4H PRN Administration Pain Rated 7-10 Levofloxacin 750 mg 06/25/25 09:00 Levofloxacin 750 Mg Tablet PO DAILY INNA Ondansetron HCl 4 mg 06/24/25 11:27 06/25/25 04:45 Ondansetron Inj 4 Mg/2 Ml Vial IV PUSH 4 mg Q4H PRN Administration Nausea Oxycodone HCl 5 mg 06/24/25 13:09 Oxycodone Hcl (*Crx) 5 Mg Tab Ir PO Q4H PRN Pain 4-6 Radiology Results: ITS Impressions Soft Tissue Neck CT 06/24/25 10:59 IMPRESSION: 1. Likely left otitis externa with immediately surrounding mild likely reactive lymphadenopathy. Labs Labs: Laboratory Results - last 24 hr 06/24/25 06/24/25 09:55 13:39 WBC 8.2 RBC 4.50 Hgb 13.6 Hct 39.8 MCV 88.4 MCH 30.2 MCHC 34.2 RDW 12.1 Plt Count 251 MPV 9.4 Immature Gran % (Auto) 0.4 Neut % (Auto) 52.2 Lymph % (Auto) 36.7 [place] % (Auto) 6.4 Eos % (Auto) 3.8 Baso % (Auto) 0.5 Lymph # (Auto) 3.00 [place] # (Auto) 0.5 Eos # (Auto) 0.3 Baso # (Auto) 0.0 Abs Immat Gran (auto) 0.03 Absolute Neuts (auto) 4.3 Absolute Nucleated RBC 0.000 Nucleated RBC % 0.0 PT 12.9 INR 1.0 APTT 29.4 Sodium 136 L Potassium 3.5 Chloride 103 Carbon Dioxide 24 Anion Gap 9 BUN 7 D Creatinine 0.78 Estim Creat Clear Calc 119 Estimated GFR > 60 Glucose 169 H Lactic Acid 1.2 Calcium 8.7 Total Bilirubin 0.6 AST 31 ALT 27 Alkaline Phosphatase 76 C-Reactive Protein 2.8 H Total Protein 6.7 Albumin 4.0
[2025-06-25 07:23] LABS: Alanine Aminotransferase 39 U/L (6-35); Albumin Level 4.2 g/dL (3.5-5.1); Alkaline Phosphatase 69 U/L (38-126); Anion Gap 12 mmol/L (4-12); Aspartate Amino Transferase 36 U/L (14-36); Bilirubin,Total 0.8 mg/dL (0.2-1.3); Blood Urea Nitrogen 6 mg/dL (7-17); Calcium 9.1 mg/dL (8.4-10.2); Carbon Dioxide 20 mmol/L (22-30); Chloride 104 mmol/L (98-107); Estimated CRCL calculation 140 ml/min; Estimated Glomerular Filt Rate > 60; Glucose 128 mg/dL (65-110); Potassium 4.3 mmol/L (3.4-5.0); Sodium 136 mmol/L (137-145); Total Protein 7.3 g/dL (6.3-8.2)
[2025-06-25 14:00] VITALS: BP 104/52; PULSE 62; RESP 18; TEMP 35.8; O2SAT 98
--- NOTE | 2025-06-25 17:10 | P.CONS_ITS ---
Assessment and Plan Assessment and plan (1) Otalgia of left ear: Code(s): H92.02 - Otalgia, left ear Status: Acute Assessment and Plan: The CT demonstrates inflammation of the structure surrounding the canal however physical exam demonstrates a completely normal ear canal and middle ear on the left side. On a positive no, there is decreased inflammation per physical exam. The patient is able to tolerate deep palpation of the structures. She states that she is feeling mildly improved from a pain standpoint. She also states that she is not able to tolerate oral hydration because of nausea. Perhaps the nausea is due to the narcotic. I recommend continued IV antibiotic therapy given her improvement. If the patient does not improve significantly after 48-72 hours we could consider broadening the antibiotics. Perhaps consider IV maintenance fluid overnight is the patient reports she is very thirsty, and feels as though she can not keep up with her hydration orally. If the patient fails to improve after broadening antibiotic therapy we may need to re-scanned her. If the patient improves in the next 24-48 hours I recommend discharge on an oral course of antibiotics. Were taught that fluoroquinolones penetrate the cartilage better than other antibiotics, that being said if ID pharmacy has any recommendations his input may be incredibly useful in the next 48-72 hours if the patient fails to improve. (2) Parotitis: Code(s): K11.20 - Sialoadenitis, unspecified Status: Acute HPI Data of Consult Date/Time: 06/25/25 17:10 Requesting Physician: Devon Cleveland MD Primary Care Provider: Elias Nayak MD Consult Narrative Reason for consult: Left-sided otalgia facial pain Narrative: Bettina Clayton is a 24 year old female was admitted from the ER following worsening of the left-sided otalgia and pain. CT reviewed shows [place] canal inflammation some edema of the left-sided parotid gland. No abscess. Patient reports she is feeling slightly better with IV pain control IV antibiotics. She reports that she feels thirsty and is unable to keep up with her hydration. Because of nausea. Review of Systems 2 Review of Systems: All systems reviewed & are unremarkable except as noted in HPI and below PMFSH Past Medical History Medical History Depression Anxiety Migraine Nabothian cyst Surgical History Surgical History H/O skin graft S/P cholecystectomy Family History Family History (Updated 06/24/25 @ 13:41 by Kristine Palencia RN) Other Unknown family medical history Social History Social History Smoking status: Current every day smoker Alcohol intake: current Alcohol use details: SOCIAL EVENTS - NOT WEEKLY Substance use: never Substance use type: does not use Do You Feel Safe in your Home?: Yes Lack of Transportation: No Lack of Food: Never True Current Housing: I Have Housing Concerned About Future Housing: No Difficulty Paying Gas/Electric Bills: No Difficulty Paying for Meds: No Currently Unemployed: No Education: High School Diploma/GED Difficulty w/ Childcare or Family Care: No Living arrangements: with family Occupation/Education: occupation Gender identity (if verbalized by the patient): Female Sexual Orientation (if Verbalized by the Patient): Straight or Heterosexual Spiritual care concerns: No Meds Home Medications and Allergies Allergies Allergy/AdvReac Type Severity Reaction Status Date / Time hydrocodone Allergy Mild Nausea Verified 06/24/25 13:44 Vital Signs Vital Signs - 24 hr 06/24/25 20:00 06/25/25 04:30 06/25/25 08:20 Temperature 35.7 C L 35.9 C L Pulse Rate 58 L 54 L Respiratory Rate 18 18 Blood Pressure 118/58 L 114/64 Pulse Oximetry 98 97 Oxygen Delivery Room Air 06/25/25 14:00 Temperature 35.8 C L Pulse Rate 62 Respiratory Rate 18 Blood Pressure 104/52 L Pulse Oximetry 98 Oxygen Delivery Exam 2 Narrative: The left middle ears clear the left ear canal looks normal there is decreased edema on the left periparotid ear region. Results Labs 06/25/25 05:48 06/25/25 05:48 Labs: Short CBC 06/25/25 Range/Units 05:48 WBC 10.8 H (4.5-10.0) K/mm3 Hgb 14.0 (12.0-15.0) g/dL Hct 41.4 (37.0-47.0) % Plt Count 304 (150-375) k/mm3 BMP 06/25/25 05:48 Sodium 136 L Potassium 4.3 Chloride 104 Carbon Dioxide 20 L BUN 6 L Creatinine 0.65 L Glucose 128 H Calcium 9.1 Liver Function 06/25/25 Range/Units 05:48 Total Bilirubin 0.8 (0.2-1.3) mg/dL AST 36 (14-36) U/L ALT 39 H (6-35) U/L Alkaline Phosphatase 69 (38-126) U/L Albumin 4.2 (3.5-5.1) g/dL
[2025-06-25 20:15] VITALS: BP 105/56; PULSE 58; RESP 18; TEMP 36.1; O2SAT 99
[2025-06-26] MEDS: HYDROmorphone HCL INJ (*CRX) 1 MG/ML SYR 0.75 MG IV PUSH ×5 (00:02→22:18)
[2025-06-26] MEDS: MELATONIN 5 MG TABLET 10 MG PO (00:17)
[2025-06-26 04:25] VITALS: BP 106/51; PULSE 57; RESP 16; TEMP 35.9; O2SAT 98
--- NOTE | 2025-06-26 07:57 | P.PNIM_ITS ---
Progress Note: A&P Assessment and Plan (1) Otitis externa: Qualifiers: Chronicity: acute Laterality: right Otitis externa type: unspecified type Qualified Code(s): H60.501 - Unspecified acute noninfective otitis externa, right ear Code(s): H60.90 - Unspecified otitis externa, unspecified ear Status: Acute Assessment and Plan: * ENT has seen patient outpatient today, 06/24. Spoke with ED provider and recommended inpatient admission for IV antibiotics (specifically Levaquin), steroids, and IV pain medications. Has been consulted inpatient. * Started on Levaquin on 06/24 * Analgesics p.r.n. * Started on steroid course: Prednisone 40 mg x 5 days * blood cultures pending, drawn on 06/24 * monitor for clinical improvement * ENT consult * Continue IV antibiotic therapy * If does not improve clinically over the next 48-72 hours, recommend broadening antibiotics * IV fluids * May need to consider rescanning her if she does not improve over the next 24 hours * Upon discharge, give course of oral antibiotics, will consult ID pharmacy regarding appropriate coverage (2) Otalgia of left ear: Code(s): H92.02 - Otalgia, left ear Status: Acute Assessment and Plan: - see above (3) Lymphadenopathy: Code(s): R59.1 - Generalized enlarged lymph nodes Status: Acute Assessment and Plan: -see above Plan Diet: regular GI Prophylaxis: n/a DVT Prophylaxis: low risk and n/a IV fluids: 2L bolus -> 125 mL/hr x1L Lines/Tubes: Peripheral IV Code Status: Full code Subjective Date/time seen: 06/26/25 07:57 Interval history: 24 y/o F with PMH of migraines, depression, and anxiety presents here with facial pain. 06/26/2025 Patient sitting comfortably in bed at time of exam. ENT was consulted yesterday, recommend continuing IV antibiotic therapy given patient's improvement. Patient has been on p.o. Levaquin and has continued to improve marginally throughout hospitalization. Once again today she endorses slight improvement in her overall pain. Continue giving IV maintenance fluid as patient continues to endorse increased thirst. Will continue to monitor over the next 24 hours, and if she continues to improve endorsement of symptoms, likely discharge tomorrow. Blood work and vital signs remain stable and unremarkable. Review of Systems Review of Systems: All systems reviewed & are unremarkable except as noted in HPI and below Exam Const: Other: , young adult, female, uncomfortable, no acute distress HENMT: Face/Nose/Sinus: Normal nares present Mouth: Yes moist mucous membranes Other: Difficult oral exam secondary to pain. Right TM consistent with serous effusion, no erythema or tenderness on exam. Left TMA injected, bulging, and swelling noted to the ear canal. Significant tenderness with traction of the here for exam. Eyes: General: appearance normal, both eyes and all related structures Sclera: sclerae normal Pupils: Equal, round and reactive pupils present EOM: EOMs intact bilaterally Neck: Lymphatic: lymphadenopathy Other: Left-sided lymphadenopathy noted, worse near the parotid region and tonsillar region Resp: Effort & Inspection: normal respiratory effort Auscultation: clear to auscultation bilaterally Cardio: Rate: regular rate Rhythm: regular rhythm Other: S1-S2 present without murmur, rub, ectopy Skin: General skin exam: normal color and no rashes or lesions noted Wounds: no wounds Neuro: Cranial nerves: Yes Equal, round and reactive pupils present Speech: normal speech Motor exam (neuro): 5/5 motor strength present throughout Sensory Exam: normal sensation Other: A&O x4 Extrem: General: normal to inspection Psych: Mental Status: mental status grossly normal Affect: normal affect Other: Good insight and judgment, pleasant Objective Data Vital Signs Vital Signs: Vital Signs - 24 hr 06/25/25 08:20 06/25/25 14:00 06/25/25 20:00 Temperature 96.5 F L Pulse Rate 62 Respiratory Rate 18 Blood Pressure 104/52 L Pulse Oximetry 98 Oxygen Delivery Room Air Room Air 06/25/25 20:15 06/26/25 04:25 Temperature 96.9 F L 96.7 F L Pulse Rate 58 L 57 L Respiratory Rate 18 16 Blood Pressure 105/56 L 106/51 L Pulse Oximetry 99 98 Oxygen Delivery Intake/Output Intake/Output: Intake & Output 06/23/25 06/24/25 06/25/25 06/26/25 23:59 23:59 23:59 23:59 Intake Total 2240 1760 550 Balance 2240 1760 550 Meds/Results Medications: Active Medications Generic Name Dose Route Start Last Admin Trade Name Freq PRN Reason Stop Dose Admin Acetaminophen 650 mg 06/24/25 13:09 Acetaminophen 325 Mg Tablet PO Q6H PRN Mild Pain (1-5) Or Fever Hydromorphone HCl 0.75 mg 06/24/25 13:30 06/26/25 00:02 Hydromorphone Hcl Inj (*Crx) 1 Mg/Ml Syr IV PUSH 0.75 mg Q4H PRN Administration Pain Rated 7-10 Sodium Chloride 1,000 mls @ 100 mls/hr 06/26/25 07:45 Normal Saline Iv IV CONT .Q10H INNA Levofloxacin 750 mg 06/25/25 09:00 06/25/25 08:26 Levofloxacin 750 Mg Tablet PO 750 mg DAILY INNA Administration Melatonin 10 mg 06/26/25 00:14 06/26/25 00:17 Melatonin 5 Mg Tablet PO 10 mg HS PRN Administration insomnia Ondansetron HCl 4 mg 06/24/25 11:27 06/25/25 04:45 Ondansetron Inj 4 Mg/2 Ml Vial IV PUSH 4 mg Q4H PRN Administration Nausea Oxycodone HCl 5 mg 06/24/25 13:09 Oxycodone Hcl (*Crx) 5 Mg Tab Ir PO Q4H PRN Pain 4-6 Radiology Results: ITS Impressions Soft Tissue Neck CT 06/24/25 10:59 IMPRESSION: 1. Likely left otitis externa with immediately surrounding mild likely reactive lymphadenopathy.
[2025-06-26] MEDS: SODIUM CHLORIDE 0.9% IV 1,000 ML 100 ML IV CONT ×2 (08:34→22:18)
[2025-06-26 09:04] LABS: Hematocrit 41.3 % (37.0-47.0); Hemoglobin 13.5 g/dL (12.0-15.0); Immature Granulocyte Percent A 0.5 % (0-0.5); Lymphocytes Absolute Auto 4.92 K/mm3 (0.9-3.2); Mean Corpuscular HGB Conc 32.7 g/dl (32-36); Mean Corpuscular Hemoglobin 29.8 pg (26-34); Mean Corpuscular Volume 91.2 fl (80-100); Nucleated Red Blood Cells Absolute Auto 0.000 K/mm3 (0.0-0.012); Nucleated Red Blood Cells Perc 0.0 % (0.0-0.2); Platelet Count Result 302 k/mm3 (150-375); Red Blood Count 4.53 M/mm3 (4.2-5.4); White Blood Count 8.6 K/mm3 (4.5-10.0)
[2025-06-26 09:29] LABS: Alanine Aminotransferase 31 U/L (6-35); Albumin Level 4.1 g/dL (3.5-5.1); Alkaline Phosphatase 63 U/L (38-126); Anion Gap 8 mmol/L (4-12); Aspartate Amino Transferase 25 U/L (14-36); Bilirubin,Total 0.5 mg/dL (0.2-1.3); Blood Urea Nitrogen 11 mg/dL (7-17); Calcium 8.7 mg/dL (8.4-10.2); Carbon Dioxide 25 mmol/L (22-30); Chloride 103 mmol/L (98-107); Estimated CRCL calculation 106 ml/min; Estimated Glomerular Filt Rate > 60; Glucose 129 mg/dL (65-110); Potassium 3.7 mmol/L (3.4-5.0); Sodium 136 mmol/L (137-145); Total Protein 7.4 g/dL (6.3-8.2)
[2025-06-26 09:56] LABS: Schistocytes None Seen
[2025-06-26] MEDS: DOXYCYCLINE IV 100 MG in SODIUM CHLORIDE 0.9% IV 100 ML IVPB ×2 (10:34→20:06)
[2025-06-26 14:00] VITALS: BP 110/50; PULSE 59; RESP 16; TEMP 36.9; O2SAT 99
[2025-06-26] MEDS: DOCUSATE SODIUM 100 MG CAPSULE PO (14:26)
[2025-06-26 21:33] VITALS: BP 112/60; PULSE 51; RESP 16; TEMP 37.1; O2SAT 99
--- NOTE | 2025-06-26 21:54 | PM.PNGS ---
Progress Note: A&P Assessment and Plan (1) Otitis externa: Qualifiers: Chronicity: acute Laterality: right Otitis externa type: unspecified type Qualified Code(s): H60.501 - Unspecified acute noninfective otitis externa, right ear Code(s): H60.90 - Unspecified otitis externa, unspecified ear Status: Acute Assessment and Plan: Discussed patient with [facility]. Reviewed imaging as well. Concern for skull base osteo given symptoms and imaging. -Please obtain crp and esr -Please obtain MRI IAC with and without contrast -If MRI suggests skull base involvement, ID consult can help direct course and type of antibiotic. -Continue anti pseudomonal coverage -Please start ciprodex drops. 5 drops left ear qid when awake. -Please call me with any questions, I will re examine and discuss all of the aforementioned with the patient tomorrow. (2) Otalgia of left ear: Code(s): H92.02 - Otalgia, left ear Status: Acute Plan D Subjective Subjective Date/Time Seen: 06/26/25 21:54 Interval history: Patient reports mild improvement in pain. Objective Data Vital Signs Vital Signs: Vital Signs - 24 hr 06/26/25 04:25 06/26/25 08:00 06/26/25 14:00 Temperature 35.9 C L 36.9 C Pulse Rate 57 L 59 L Respiratory Rate 16 16 Blood Pressure 106/51 L 110/50 L Pulse Oximetry 98 99 Oxygen Delivery Room Air 06/26/25 20:00 06/26/25 21:33 Temperature 37.1 C Pulse Rate 51 L Respiratory Rate 16 Blood Pressure 112/60 Pulse Oximetry 99 Oxygen Delivery Room Air Intake/Output Intake/Output: Intake & Output 06/23/25 06/24/25 06/25/25 06/26/25 23:59 23:59 23:59 23:59 Intake Total 2239 1909 2069 Balance 2239 1909 2069 Meds/Results Medications: Active Medications Generic Name Dose Route Start Last Admin Trade Name Freq PRN Reason Stop Dose Admin Acetaminophen 650 mg 06/24/25 13:09 Acetaminophen 325 Mg Tablet PO Q6H PRN Mild Pain (1-5) Or Fever Docusate Sodium 100 mg 06/26/25 13:58 06/26/25 14:26 Docusate Sodium 100 Mg Capsule PO 100 mg Q12H PRN Administration Constipation Hydromorphone HCl 0.75 mg 06/24/25 13:30 06/26/25 18:05 Hydromorphone Hcl Inj (*Crx) 1 Mg/Ml Syr IV PUSH 0.75 mg Q4H PRN Administration Pain Rated 7-10 Sodium Chloride 1,000 mls @ 100 mls/hr 06/26/25 07:45 06/26/25 08:34 Normal Saline Iv IV CONT 100 mls/hr .Q10H INNA Administration Doxycycline Hyclate 100 mg/ 100 mls @ 100 mls/hr 06/26/25 10:25 06/26/25 20:06 Sodium Chloride IVPB 100 mls/hr Q12HR INNA Administration Levofloxacin 750 mg 06/25/25 09:00 06/26/25 12:56 Levofloxacin 750 Mg Tablet PO Not Given DAILY INNA Melatonin 10 mg 06/26/25 00:14 06/26/25 00:17 Melatonin 5 Mg Tablet PO 10 mg HS PRN Administration insomnia Ondansetron HCl 4 mg 06/24/25 11:27 06/25/25 04:45 Ondansetron Inj 4 Mg/2 Ml Vial IV PUSH 4 mg Q4H PRN Administration Nausea Oxycodone HCl 5 mg 06/24/25 13:09 Oxycodone Hcl (*Crx) 5 Mg Tab Ir PO Q4H PRN Pain 4-6 Polyethylene Glycol 17 gm 06/27/25 09:00 Polyethylene Glycol 3350 [address] [place] [facility] Results: ITS Impressions Soft Tissue Neck CT 06/24/25 10:59 IMPRESSION: 1. Likely left otitis externa with immediately surrounding mild likely reactive lymphadenopathy. Labs Labs: Laboratory Results - last 24 hr 06/26/25 08:34 WBC 8.6 RBC 4.53 Hgb 13.5 Hct 41.3 MCV 91.2 MCH 29.8 MCHC 32.7 RDW 12.4 Plt Count 302 MPV 9.6 Immature Gran % (Auto) 0.5 Neut % (Auto) 36.0 L Lymph % (Auto) 57.2 [place] % (Auto) 4.9 Eos % (Auto) 0.9 Baso % (Auto) 0.5 Lymph # (Auto) 4.92 [place] # (Auto) 0.4 Eos # (Auto) 0.1 Baso # (Auto) 0.0 Abs Immat Gran (auto) 0.04 H Absolute Neuts (auto) 3.1 Absolute Nucleated RBC 0.000 Band Neutrophils % Not Reportable Nucleated RBC % 0.0 Atypical Lymphocytes Present Platelet Estimate Adequate Schistocytes None seen Sodium 136 L Potassium 3.7 Chloride 103 Carbon Dioxide 25 Anion Gap 8 BUN 11 D Creatinine 0.88 Estim Creat Clear Calc 106 Estimated GFR > 60 Glucose 129 H Calcium 8.7 Total Bilirubin 0.5 AST 25 ALT 31 Alkaline Phosphatase 63 Total Protein 7.4 Albumin 4.1
[2025-06-27] MEDS: MELATONIN 5 MG TABLET 10 MG PO ×2 (00:41→22:58)
[2025-06-27 04:13] VITALS: BP 109/64; PULSE 60; RESP 16; TEMP 36.4; O2SAT 99
[2025-06-27] MEDS: SODIUM CHLORIDE 0.9% IV 1,000 ML 100 ML IV CONT (06:03)
--- NOTE | 2025-06-27 07:07 | P.PNIM_ITS ---
Progress Note: A&P Assessment and Plan (1) Otitis externa: Qualifiers: Chronicity: acute Laterality: right Otitis externa type: unspecified type Qualified Code(s): H60.501 - Unspecified acute noninfective otitis externa, right ear Code(s): H60.90 - Unspecified otitis externa, unspecified ear Status: Acute Assessment and Plan: * ENT has seen patient outpatient today, 06/24. Spoke with ED provider and recommended inpatient admission for IV antibiotics (specifically Levaquin), steroids, and IV pain medications. Has been consulted inpatient. * Started on Levaquin on 06/24 * Analgesics p.r.n. * Started on steroid course: Prednisone 40 mg x 5 days * blood cultures pending, drawn on 06/24 * monitor for clinical improvement * ENT consult * Continue IV antibiotic therapy * If does not improve clinically over the next 48-72 hours, recommend broadening antibiotics * IV fluids * May need to consider rescanning her if she does not improve over the next 24 hours * Upon discharge, give course of oral antibiotics, will consult ID pharmacy regarding appropriate coverage * ENT discussed with [facility] Neurootology * CRP/ESR, obtain MRI IAC w/ and w/o contrast * If MRI suggests skull base involvement, ID consult can help direct course and type of antibiotic * Continue anti pseudomonal coverage, start ciprodex (5 drops in L ear qid) (2) Otalgia of left ear: Code(s): H92.02 - Otalgia, left ear Status: Acute Assessment and Plan: - see above (3) Lymphadenopathy: Code(s): R59.1 - Generalized enlarged lymph nodes Status: Acute Assessment and Plan: -see above Plan Diet: regular GI Prophylaxis: n/a DVT Prophylaxis: low risk and n/a IV fluids: 2L bolus -> 125 mL/hr x1L Lines/Tubes: Peripheral IV Code Status: Full code Subjective Date/time seen: 06/27/25 07:07 Interval history: 24 y/o F with PMH of migraines, depression, and anxiety presents here with facial pain. 06/27/2025 Patient sitting comfortably in bed at time of exam. Seen by ENT yesterday - recommends MRI IAC to assess for skull base osteo. Will consult ID depending on results. Will also start Ciprodex drops (5d in L ear QID). Pt otherwise continue to endorse marginal improvement of symptoms. Blood work remains stable and reassuring. Review of Systems Review of Systems: All systems reviewed & are unremarkable except as noted in HPI and below Exam Const: Other: , young adult, female, uncomfortable, no acute distress HENMT: Face/Nose/Sinus: Normal nares present Mouth: Yes moist mucous membranes Other: Difficult oral exam secondary to pain. Right TM consistent with serous effusion, no erythema or tenderness on exam. Left TMA injected, bulging, and swelling noted to the ear canal. Significant tenderness with traction of the here for exam. Eyes: General: appearance normal, both eyes and all related structures Sclera: sclerae normal Pupils: Equal, round and reactive pupils present EOM: EOMs intact bilaterally Neck: Lymphatic: lymphadenopathy Other: Left-sided lymphadenopathy noted, worse near the parotid region and tonsillar region Resp: Effort & Inspection: normal respiratory effort Auscultation: clear to auscultation bilaterally Cardio: Rate: regular rate Rhythm: regular rhythm Other: S1-S2 present without murmur, rub, ectopy Skin: General skin exam: normal color and no rashes or lesions noted Wounds: no wounds Neuro: Cranial nerves: Yes Equal, round and reactive pupils present Speech: normal speech Motor exam (neuro): 5/5 motor strength present throughout Sensory Exam: normal sensation Other: A&O x4 Extrem: General: normal to inspection Psych: Mental Status: mental status grossly normal Affect: normal affect Other: Good insight and judgment, pleasant Objective Data Vital Signs Vital Signs: Vital Signs - 24 hr 06/26/25 08:00 06/26/25 14:00 06/26/25 20:00 Temperature 98.5 F Pulse Rate 59 L Respiratory Rate 16 Blood Pressure 110/50 L Pulse Oximetry 99 Oxygen Delivery Room Air Room Air 06/26/25 21:33 06/27/25 04:13 Temperature 98.7 F 97.6 F Pulse Rate 51 L 60 Respiratory Rate 16 16 Blood Pressure 112/60 109/64 Pulse Oximetry 99 99 Oxygen Delivery Intake/Output Intake/Output: Intake & Output 06/24/25 06/25/25 06/26/25 06/27/25 23:59 23:59 23:59 23:59 Intake Total 2240 1910 3070 1425 Balance 2239 1910 3070 1425 Meds/Results Medications: Active Medications Generic Name Dose Route Start Last Admin Trade Name Freq PRN Reason Stop Dose Admin Acetaminophen 650 mg 06/24/25 13:09 Acetaminophen 325 Mg Tablet PO Q6H PRN Mild Pain (1-5) Or Fever Docusate Sodium 100 mg 06/26/25 13:58 06/26/25 14:26 Docusate Sodium 100 Mg Capsule PO 100 mg Q12H PRN Administration Constipation Hydromorphone HCl 0.75 mg 06/24/25 13:30 06/26/25 22:18 Hydromorphone Hcl Inj (*Crx) 1 Mg/Ml Syr IV PUSH 0.75 mg Q4H PRN Administration Pain Rated 7-10 Sodium Chloride 1,000 mls @ 100 mls/hr 06/26/25 07:45 06/27/25 06:03 Normal Saline Iv IV CONT 100 mls/hr .Q10H INNA Administration Doxycycline Hyclate 100 mg/ 100 mls @ 100 mls/hr 06/26/25 10:25 06/26/25 20:06 Sodium Chloride IVPB 100 mls/hr Q12HR INNA Administration Levofloxacin 750 mg 06/25/25 09:00 06/26/25 12:56 Levofloxacin 750 Mg Tablet PO Not Given DAILY INNA Melatonin 10 mg 06/26/25 00:14 06/27/25 00:41 Melatonin 5 Mg Tablet PO 10 mg HS PRN Administration insomnia Ondansetron HCl 4 mg 06/24/25 11:27 06/25/25 04:45 Ondansetron Inj 4 Mg/2 Ml Vial IV PUSH 4 mg Q4H PRN Administration Nausea Oxycodone HCl 5 mg 06/24/25 13:09 Oxycodone Hcl (*Crx) 5 Mg Tab Ir PO Q4H PRN Pain 4-6 Polyethylene Glycol 17 gm 06/27/25 09:00 Polyethylene Glycol 3350 17 Gm [facility] [place] Radiology Results: ITS Impressions Soft Tissue Neck CT 06/24/25 10:59 IMPRESSION: 1. Likely left otitis externa with immediately surrounding mild likely reactive lymphadenopathy. Labs Labs: Laboratory Results - last 24 hr 06/26/25 06/27/25 08:34 04:57 WBC 8.6 RBC 4.53 Hgb 13.5 Hct 41.3 MCV 91.2 MCH 29.8 MCHC 32.7 RDW 12.4 Plt Count 302 MPV 9.6 Immature Gran % (Auto) 0.5 Neut % (Auto) 36.0 L Lymph % (Auto) 57.2 H [place] % (Auto) 4.9 Eos % (Auto) 0.9 Baso % (Auto) 0.5 Lymph # (Auto) 4.92 H [place] # (Auto) 0.4 Eos # (Auto) 0.1 Baso # (Auto) 0.0 Abs Immat Gran (auto) 0.04 H Absolute Neuts (auto) 3.1 Absolute Nucleated RBC 0.000 Band Neutrophils % Not Reportable Nucleated RBC % 0.0 Atypical Lymphocytes Present Platelet Estimate Adequate Schistocytes None seen ESR 17 Sodium 136 L Potassium 3.7 Chloride 103 Carbon Dioxide 25 Anion Gap 8 BUN 11 D Creatinine 0.88 Estim Creat Clear Calc 106 Estimated GFR > 60 Glucose 129 H Calcium 8.7 Total Bilirubin 0.5 AST 25 ALT 31 Alkaline Phosphatase 63 Total Protein 7.4 Albumin 4.1
[2025-06-27 07:27] LABS: Hematocrit 37.3 % (37.0-47.0); Hemoglobin 12.3 g/dL (12.0-15.0); Immature Granulocyte Percent A 0.4 % (0-0.5); Lymphocytes Absolute Auto 4.72 K/mm3 (0.9-3.2); Mean Corpuscular HGB Conc 33.0 g/dl (32-36); Mean Corpuscular Hemoglobin 29.9 pg (26-34); Mean Corpuscular Volume 90.8 fl (80-100); Nucleated Red Blood Cells Absolute Auto 0.000 K/mm3 (0.0-0.012); Nucleated Red Blood Cells Perc 0.0 % (0.0-0.2); Platelet Count Result 274 k/mm3 (150-375); Red Blood Count 4.11 M/mm3 (4.2-5.4); White Blood Count 8.5 K/mm3 (4.5-10.0)
[2025-06-27 07:49] LABS: Alanine Aminotransferase 20 U/L (6-35); Albumin Level 3.3 g/dL (3.5-5.1); Alkaline Phosphatase 57 U/L (38-126); Anion Gap 5 mmol/L (4-12); Aspartate Amino Transferase 53 U/L (14-36); Bilirubin,Total 0.4 mg/dL (0.2-1.3); Blood Urea Nitrogen 10 mg/dL (7-17); Calcium 8.2 mg/dL (8.4-10.2); Carbon Dioxide 23 mmol/L (22-30); Chloride 106 mmol/L (98-107); Estimated CRCL calculation 135 ml/min; Estimated Glomerular Filt Rate > 60; Glucose 89 mg/dL (65-110); Potassium 3.9 mmol/L (3.4-5.0); Sodium 134 mmol/L (137-145); Total Protein 5.8 g/dL (6.3-8.2)
--- NOTE | 2025-06-27 08:25 | PC.NURSE ---
I went to begin IV antibiotic and give dilaudid for pain, IV site was swollen and slightly red, IV meds not administered at this time
--- NOTE | 2025-06-27 11:13 | PC.NURSE ---
3 nurses have attempted IV, unable to obtain, will have another RN try but pt is reluctant at this time, taking a break
--- NOTE | 2025-06-27 12:33 | PM.PNGS ---
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 Patient was discussed with [facility] neuro otology. We would recommend continued antibiotic treatment. Please add drops Ciprodex left-sided t.i.d. to q.i.d. 5 drops this get a repeat CRP to see how that is changed since admission. Please obtain MRI IAC with and without contrast. If the skull base lights up on the MRI will likely need to consult Infectious Disease for discharge antibiotic regimen. (2) Otalgia of left ear: Code(s): H92.02 - Otalgia, left ear Status: Acute Subjective Subjective Date/Time Seen: 06/27/25 12:33 Interval history: Patient reports improvement in her left-sided otalgia still reports deep-seated ear pain ear fullness ESR normal. Review of Systems Review of Systems: All systems reviewed & are unremarkable except as noted in HPI and below Exam Narrative: Completely normal left-sided EAC tympanic membrane and middle ear. Some pain to deep palpation deep inside the TMJ region. Objective Data Vital Signs Vital Signs: Vital Signs - 24 hr 06/26/25 14:00 06/26/25 20:00 06/26/25 21:33 Temperature 36.9 C 37.1 C Pulse Rate 59 L 51 L Respiratory Rate 16 16 Blood Pressure 110/50 L 112/60 Pulse Oximetry 99 99 Oxygen Delivery Room Air 06/27/25 04:13 06/27/25 08:25 Temperature 36.4 C Pulse Rate 60 Respiratory Rate 16 Blood Pressure 109/64 Pulse Oximetry 99 Oxygen Delivery Room Air Intake/Output Intake/Output: Intake & Output 06/24/25 06/25/25 06/26/25 06/27/25 23:59 23:59 23:59 23:59 Intake Total 2240 1910 3170 1545 Balance 2240 1910 3170 1545 Meds/Results Medications: Active Medications Generic Name Dose Route Start Last Admin Trade Name Freq PRN Reason Stop Dose Admin Acetaminophen 650 mg 06/24/25 13:09 Acetaminophen 325 Mg Tablet PO Q6H PRN Mild Pain (1-5) Or Fever Docusate Sodium 100 mg 06/26/25 13:58 06/26/25 14:26 Docusate Sodium 100 Mg Capsule PO 100 mg Q12H PRN Administration Constipation Hydromorphone HCl 0.75 mg 06/24/25 13:30 06/26/25 22:18 Hydromorphone Hcl Inj (*Crx) 1 Mg/Ml Syr IV PUSH 0.75 mg Q4H PRN Administration Pain Rated 7-10 Sodium Chloride 1,000 mls @ 100 mls/hr 06/26/25 07:45 06/27/25 06:03 Normal Saline Iv IV CONT 100 mls/hr .Q10H INNA Administration Doxycycline Hyclate 100 mg/ 100 mls @ 100 mls/hr 06/26/25 10:25 06/26/25 21:06 Sodium Chloride IVPB Infused Q12HR INNA Infusion Levofloxacin 750 mg 06/25/25 09:00 06/27/25 08:25 Levofloxacin 750 Mg Tablet PO 750 mg DAILY INNA Administration Melatonin 10 mg 06/26/25 00:14 06/27/25 00:41 Melatonin 5 Mg Tablet PO 10 mg HS PRN Administration insomnia Ondansetron HCl 4 mg 06/24/25 11:27 06/25/25 04:45 Ondansetron Inj 4 Mg/2 Ml Vial IV PUSH 4 mg Q4H PRN Administration Nausea Oxycodone HCl 5 mg 06/24/25 13:09 Oxycodone Hcl (*Crx) 5 Mg Tab Ir PO Q4H PRN Pain 4-6 Polyethylene Glycol 17 gm 06/27/25 09:00 06/27/25 08:25 Polyethylene Glycol 3350 17 Gm Powd.Pack PO 17 gm QAM INNA Administration Radiology Results: ITS Impressions Soft Tissue Neck CT 06/24/25 10:59 IMPRESSION: 1. Likely left otitis externa with immediately surrounding mild likely reactive lymphadenopathy. Labs Labs: Laboratory Results - last 24 hr 06/27/25 04:57 WBC 8.5 RBC 4.11 L Hgb 12.3 Hct 37.3 MCV 90.8 MCH 29.9 MCHC 33.0 RDW 12.4 Plt Count 274 MPV 9.8 Immature Gran % (Auto) 0.4 Neut % (Auto) 33.7 L Lymph % (Auto) 55.5 H [place] % (Auto) 7.3 Eos % (Auto) 2.5 Baso % (Auto) 0.6 Lymph # (Auto) 4.72 H [place] # (Auto) 0.6 Eos # (Auto) 0.2 Baso # (Auto) 0.1 Abs Immat Gran (auto) 0.03 Absolute Neuts (auto) 2.9 Absolute Nucleated RBC 0.000 Nucleated RBC % 0.0 ESR 17 Sodium 134 L Potassium 3.9 Chloride 106 Carbon Dioxide 23 Anion Gap 5 BUN 10 Creatinine 0.68 L Estim Creat Clear Calc 135 Estimated GFR > 60 Glucose 89 Calcium 8.2 L Total Bilirubin 0.4 AST 53 H ALT 20 Alkaline Phosphatase 57 Total Protein 5.8 L Albumin 3.3 L
[2025-06-27] MEDS: DOXYCYCLINE IV 100 MG in SODIUM CHLORIDE 0.9% IV 100 ML IVPB (13:22)
[2025-06-27] MEDS: ACETAMINOPHEN 325 MG TABLET 650 MG PO (13:27)
[2025-06-27] MEDS: ONDANSETRON INJ 4 MG/2 ML VIAL IV PUSH ×2 (13:28→22:59)
[2025-06-27 13:45] LABS: CRP 0.6 mg/dL (<1.0)
[2025-06-27 14:00] VITALS: BP 100/58; PULSE 56; RESP 14; TEMP 37.1; O2SAT 100
[2025-06-27 19:27] VITALS: BP 110/61; PULSE 73; RESP 16; TEMP 35.9; O2SAT 97
[2025-06-27] MEDS: oxyCODONE HCL (*CRX) 5 MG TAB IR PO (19:35)
[2025-06-27 20:00] VITALS: PULSE 73; RESP 16; O2SAT 97
[2025-06-27] MEDS: HYDROmorphone HCL INJ (*CRX) 1 MG/ML SYR 0.75 MG IV PUSH (22:59)
[2025-06-28 04:06] VITALS: BP 101/49; PULSE 50; RESP 16; TEMP 36.2; O2SAT 99
--- NOTE | 2025-06-28 05:09 | PC.NURSE ---
pt had an IV access at shift coordinator. However, she refused being connected to IVF or IV Abx as ordered since it was discussed in the day shift due lack of IV access to wait for MRI results then decide about the need of having IV (by day RN report) and patient. or PO Abx. pt was educated and asked to rest tonight and not to be connected to any IV MEDS OR Fluids.
[2025-06-28 05:58] LABS: Hematocrit 38.8 % (37.0-47.0); Hemoglobin 13.0 g/dL (12.0-15.0); Immature Granulocyte Percent A 0.4 % (0-0.5); Lymphocytes Absolute Auto 4.11 K/mm3 (0.9-3.2); Mean Corpuscular HGB Conc 33.5 g/dl (32-36); Mean Corpuscular Hemoglobin 30.0 pg (26-34); Mean Corpuscular Volume 89.6 fl (80-100); Nucleated Red Blood Cells Absolute Auto 0.000 K/mm3 (0.0-0.012); Nucleated Red Blood Cells Perc 0.0 % (0.0-0.2); Platelet Count Result 285 k/mm3 (150-375); Red Blood Count 4.33 M/mm3 (4.2-5.4); White Blood Count 9.8 K/mm3 (4.5-10.0)
[2025-06-28 06:25] LABS: Alanine Aminotransferase 20 U/L (6-35); Albumin Level 3.8 g/dL (3.5-5.1); Alkaline Phosphatase 64 U/L (38-126); Anion Gap 8 mmol/L (4-12); Aspartate Amino Transferase 23 U/L (14-36); Bilirubin,Total 0.6 mg/dL (0.2-1.3); Blood Urea Nitrogen 10 mg/dL (7-17); Calcium 9.0 mg/dL (8.4-10.2); Carbon Dioxide 23 mmol/L (22-30); Chloride 103 mmol/L (98-107); Estimated CRCL calculation 122 ml/min; Estimated Glomerular Filt Rate > 60; Glucose 88 mg/dL (65-110); Sodium 134 mmol/L (137-145); Total Protein 6.6 g/dL (6.3-8.2)
[2025-06-28 06:41] LABS: Potassium 3.9 mmol/L (3.4-5.0)
--- NOTE | 2025-06-28 07:11 | P.PNIM_ITS ---
Progress Note: A&P Assessment and Plan (1) Otitis externa: Qualifiers: Chronicity: acute Laterality: right Otitis externa type: unspecified type Qualified Code(s): H60.501 - Unspecified acute noninfective otitis externa, right ear Code(s): H60.90 - Unspecified otitis externa, unspecified ear Status: Acute Assessment and Plan: * ENT has seen patient outpatient today, 06/24. Spoke with ED provider and recommended inpatient admission for IV antibiotics (specifically Levaquin), steroids, and IV pain medications. Has been consulted inpatient. * Started on Levaquin on 06/24 * Analgesics p.r.n. * Started on steroid course: Prednisone 40 mg x 5 days * blood cultures pending, drawn on 06/24 * monitor for clinical improvement * ENT consult * Continue IV antibiotic therapy * If does not improve clinically over the next 48-72 hours, recommend broadening antibiotics * IV fluids * May need to consider rescanning her if she does not improve over the next 24 hours * Upon discharge, give course of oral antibiotics, will consult ID pharmacy regarding appropriate coverage * ENT discussed with [facility] Neurootology * CRP/ESR, obtain MRI IAC w/ and w/o contrast * If MRI suggests skull base involvement, ID consult can help direct course and type of antibiotic * Continue anti pseudomonal coverage, start ciprodex (5 drops in L ear qid) (2) Otalgia of left ear: Code(s): H92.02 - Otalgia, left ear Status: Acute Assessment and Plan: - see above (3) Lymphadenopathy: Code(s): R59.1 - Generalized enlarged lymph nodes Status: Acute Assessment and Plan: -see above Plan Diet: regular GI Prophylaxis: n/a DVT Prophylaxis: low risk and n/a IV fluids: 2L bolus -> 125 mL/hr x1L Lines/Tubes: Peripheral IV Code Status: Full code Subjective Date/time seen: 06/28/25 07:11 Interval history: 24 y/o F with PMH of migraines, depression, and anxiety presents here with facial pain. 06/28/2025 Patient sitting comfortably in bed at time of exam. Review of Systems Review of Systems: All systems reviewed & are unremarkable except as noted in HPI and below Exam Const: Other: , young adult, female, uncomfortable, no acute distress HENMT: Face/Nose/Sinus: Normal nares present Mouth: Yes moist mucous membranes Other: Difficult oral exam secondary to pain. Right TM consistent with serous effusion, no erythema or tenderness on exam. Left TMA injected, bulging, and swelling noted to the ear canal. Significant tenderness with traction of the here for exam. Eyes: General: appearance normal, both eyes and all related structures Sclera: sclerae normal Pupils: Equal, round and reactive pupils present EOM: EOMs intact bilaterally Neck: Lymphatic: lymphadenopathy Other: Left-sided lymphadenopathy noted, worse near the parotid region and tonsillar region Resp: Effort & Inspection: normal respiratory effort Auscultation: clear to auscultation bilaterally Cardio: Rate: regular rate Rhythm: regular rhythm Other: S1-S2 present without murmur, rub, ectopy Skin: General skin exam: normal color and no rashes or lesions noted Wounds: no wounds Neuro: Cranial nerves: Yes Equal, round and reactive pupils present Speech: normal speech Motor exam (neuro): 5/5 motor strength present throughout Sensory Exam: normal sensation Other: A&O x4 Extrem: General: normal to inspection Psych: Mental Status: mental status grossly normal Affect: normal affect Other: Good insight and judgment, pleasant Objective Data Vital Signs Vital Signs: Vital Signs - 24 hr 06/27/25 08:25 06/27/25 14:00 06/27/25 19:27 Temperature 98.8 F 96.7 F L Pulse Rate 56 L 73 Respiratory Rate 14 16 Blood Pressure 100/58 L 110/61 Pulse Oximetry 100 97 Oxygen Delivery Room Air 06/27/25 20:00 06/28/25 04:06 Temperature 97.1 F L Pulse Rate 73 50 L Respiratory Rate 16 16 Blood Pressure 101/49 L Pulse Oximetry 97 99 Oxygen Delivery Room Air Intake/Output Intake/Output: Intake & Output 06/25/25 06/26/25 06/27/25 06/28/25 23:59 23:59 23:59 23:59 Intake Total 1909 3170 2165 700 Balance 1909 3170 2165 700 Meds/Results Medications: Active Medications Generic Name Dose Route Start Last Admin Trade Name Freq PRN Reason Stop Dose Admin Acetaminophen 650 mg 06/24/25 13:09 06/27/25 13:27 Acetaminophen 325 Mg Tablet PO 650 mg Q6H PRN Administration Mild Pain (1-5) Or Fever Docusate Sodium 100 mg 06/26/25 13:58 06/26/25 14:26 Docusate Sodium 100 Mg Capsule PO 100 mg Q12H PRN Administration Constipation Hydromorphone HCl 0.75 mg 06/24/25 13:30 06/27/25 22:59 Hydromorphone Hcl Inj (*Crx) 1 Mg/Ml Syr IV PUSH 0.75 mg Q4H PRN Administration Pain Rated 7-10 Doxycycline Hyclate 100 mg/ 100 mls @ 100 mls/hr 06/26/25 10:25 06/27/25 22:59 Sodium Chloride IVPB Not Given Q12HR [facility] Levofloxacin 750 mg 06/25/25 09:00 06/27/25 08:25 Levofloxacin 750 Mg Tablet PO 750 mg DAILY [facility] Administration Melatonin 10 mg 06/26/25 00:14 06/27/25 22:58 Melatonin 5 Mg Tablet PO 10 mg HS PRN Administration insomnia Ondansetron HCl 4 mg 06/24/25 11:27 06/27/25 22:59 Ondansetron Inj 4 Mg/2 Ml Vial IV PUSH 4 mg Q4H PRN Administration Nausea Ondansetron HCl 4 mg 06/27/25 20:59 Ondansetron Hcl Odt 4 Mg Tablet PO Q6H PRN Nausea And Vomiting Oxycodone HCl 5 mg 06/24/25 13:09 06/27/25 19:35 Oxycodone Hcl (*Crx) 5 Mg Tab Ir PO 5 mg Q4H PRN Administration Pain 4-6 Polyethylene Glycol 17 gm 06/27/25 09:00 06/27/25 08:25 Polyethylene Glycol 3350 17 Gm Powd.Pack PO 17 gm QAM INNA Administration Radiology Results: ITS Impressions Soft Tissue Neck CT 06/24/25 10:59 IMPRESSION: 1. Likely left otitis externa with immediately surrounding mild likely reactive lymphadenopathy. Labs Labs: Laboratory Results - last 24 hr 06/27/25 06/28/25 04:57 04:35 WBC 8.5 9.8 RBC 4.11 L 4.33 Hgb 12.3 13.0 Hct 37.3 38.8 MCV 90.8 89.6 MCH 29.9 30.0 MCHC 33.0 33.5 RDW 12.4 12.2 Plt Count 274 285 MPV 9.8 9.5 Immature Gran % (Auto) 0.4 0.4 Neut % (Auto) 33.7 L 46.9 Lymph % (Auto) 55.5 H 42.1 [place] % (Auto) 7.3 7.9 Eos % (Auto) 2.5 2.2 Baso % (Auto) 0.6 0.5 Lymph # (Auto) 4.72 H 4.11 H [place] # (Auto) 0.6 0.8 H Eos # (Auto) 0.2 0.2 Baso # (Auto) 0.1 0.1 Abs Immat Gran (auto) 0.03 0.04 H Absolute Neuts (auto) 2.9 4.6 Absolute Nucleated RBC 0.000 0.000 Nucleated RBC % 0.0 0.0 Sodium 134 L 134 L Potassium 3.9 3.9 Chloride 106 103 Carbon Dioxide 23 23 Anion Gap 5 8 BUN 10 10 Creatinine 0.68 L 0.76 Estim Creat Clear Calc 135 122 Estimated GFR > 60 > 60 Glucose 89 88 Calcium 8.2 L 9.0 Total Bilirubin 0.4 0.6 AST 53 H 23 ALT 20 20 Alkaline Phosphatase 57 64 C-Reactive Protein 0.6 Total Protein 5.8 L 6.6 Albumin 3.3 L 3.8
[2025-06-28] MEDS: DOXYCYCLINE HYCLATE 100 MG TABLET PO (10:37)
--- NOTE | 2025-06-28 12:16 | P.DS_ITS ---
DS: Admitting Diagnosis Discharge Date 06/28/2025 Admitting Diagnosis Mastoiditis DS: Discharge Diagnosis Discharge Diagnosis (1) Otitis externa: Qualifiers: Chronicity: acute Laterality: right Otitis externa type: unspecified type Qualified Code(s): H60.501 - Unspecified acute noninfective otitis externa, right ear Code(s): H60.90 - Unspecified otitis externa, unspecified ear Status: Acute Assessment and Plan: * ENT has seen patient outpatient today, 06/24. Spoke with ED provider and recommended inpatient admission for IV antibiotics (specifically Levaquin), steroids, and IV pain medications. Has been consulted inpatient. * Started on Levaquin on 06/24 * Analgesics p.r.n. * Started on steroid course: Prednisone 40 mg x 5 days * blood cultures pending, drawn on 06/24 * monitor for clinical improvement * ENT consult * Continue IV antibiotic therapy * If does not improve clinically over the next 48-72 hours, recommend broadening antibiotics * IV fluids * May need to consider rescanning her if she does not improve over the next 24 hours * Upon discharge, give course of oral antibiotics, will consult ID pharmacy regarding appropriate coverage * ENT discussed with [facility] * CRP/ESR, obtain MRI IAC w/ and w/o contrast * If MRI suggests skull base involvement, ID consult can help direct course and type of antibiotic * Continue anti pseudomonal coverage, start ciprodex (5 drops in L ear qid) (2) Otalgia of left ear: Code(s): H92.02 - Otalgia, left ear Status: Acute Assessment and Plan: - see above (3) Lymphadenopathy: Code(s): R59.1 - Generalized enlarged lymph nodes Status: Acute Assessment and Plan: -see above Plan Diet: regular GI Prophylaxis: n/a DVT Prophylaxis: low risk and n/a IV fluids: 2L bolus -> 125 mL/hr x1L Lines/Tubes: Peripheral IV Code Status: Full code DS: Summary Hospital Course Reason for hospitalization: Ear pain Hospital Course: 24 y/o F with PMH of migraines, depression, and anxiety presents here with facial pain. The patient presents here from home for further evaluation of left facial pain. She reports that has been ongoing for the past week. She was initially started with left ear pain which over 48 hours began to radiate into her jaw and behind her left ear for which she sought care for on 06/17. At that time she had reported it had been ongoing since 06/15. She was diagnosed with a dental abscess and discharged home with Augmentin and prednisone. She return to the emergency department on 06/20 for continued discomfort to her left jaw line and worsening swelling to her left mandible. She had also developed a low-grade fe emilia. Her antibiotics for exchanged to cefuroxime and she was discharged home. She was able to follow-up with ENT on 06/22. Provider at that time recommended increasing hydration, sour candies to assist with milking the gland, pain medication, and a CT in 1 week if symptoms not improving. Patient also instructed to contact provider if she develops any lesions that she would need to be started on antivirals. She then followed up again with ENT today on 06/24. During this visit it was noted that the patient had redness to the left side of her neck and continued ear pain. Otoscope examination was improved however given the redness and severe neck pain, the patient was directed to the emergency department for a CT scan. CT revealed left otitis externa with immediate surrounding mild likely reactive lymphadenopathy. Given the patient has failed outpatient antibiotics, ENT recommended inpatient admission for IV antibiotics (specifically Levaquin), steroids, and IV pain medications. The patient currently denies fever, chills, or body aches. Initial VS at presentation: 98? F, HR 77, R 14, 143/98, and 99% on RA. ED workup showed: No leukocytosis, no anemia, normal coags, sodium 136, creatinine 0.78 and normal GFR, glucose 169. See CT impression above in HPI. T was consulted regarding otology of the left ear. Agree that CT demonstrates inflammation of the structures surrounding the canal however physical exam is benign. She is able to tolerate deep palpation to the structures and continued to endorse improvement of pain throughout hospitalization. ENT initially ryland mmended continued IV antibiotic therapy with obtaining a brain MRI IAC to assess for skull base osteomyelitis. This was obtained on 06/28 and showed moderately sized left mastoid effusion, otherwise unremarkable. I once again spoke with the ENT who recommended adding Ciprodex 5 drops t.i.d. while hospitalized and upon discharge continue antibiotic coverage. Spoke with pharmacist recommends levofloxacin 750 mg daily and doxycycline 100 mg p.o. q.12 hours. Both these medications will be continued until 07/14/2025. Patient is otherwise hemodynamically stable, blood cultures show negative growth to date. Will advise patient to follow-up with the ENTs office in 12 to 14 days. Patient can be discharged home at this time. Status at Discharge Functional status at discharge: independent ambulation Overall status at discharge: patient is back to baseline Time Spent with Patient Time attestation: Total time spent providing and/or coordinating discharge services: 35 Exam Const: Other: , young adult, female, uncomfortable, no acute distress HENMT: Other: Left-sided tympanic membrane and middle ear normal upon exam. Still some continued tenderness to palpation on the inside of the TMJ region but otherwise unremarkable Neck: Other: Left-sided lymphadenopathy noted, worse near the parotid region and tonsillar region Cardio: Other: S1-S2 present without murmur, rub, ectopy Neuro: Other: A&O x4 Psych: Other: Good insight and judgment, pleasant DS: Data Data Completed and Pending Labs on day of discharge: Labs from last 24 hours 06/28/25 06/27/25 04:35 04:57 WBC 9.8 RBC 4.33 Hgb 13.0 Hct 38.8 MCV 89.6 MCH 30.0 MCHC 33.5 RDW 12.2 Plt Count 285 MPV 9.5 Immature Gran % (Auto) 0.4 Neut % (Auto) 46.9 Lymph % (Auto) 42.1 Benson % (Auto) 7.9 Eos % (Auto) 2.2 Baso % (Auto) 0.5 Lymph # (Auto) 4.11 H Benson # (Auto) 0.8 H Eos # (Auto) 0.2 Baso # (Auto) 0.1 Abs Immat Gran (auto) 0.04 H Absolute Neuts (auto) 4.6 Absolute Nucleated RBC 0.000 Nucleated RBC % 0.0 Sodium 134 L Potassium 3.9 Chloride 103 Carbon Dioxide 23 Anion Gap 8 BUN 10 Creatinine 0.76 Estim Creat Clear Calc 122 Estimated GFR > 60 Glucose 88 Calcium 9.0 Total Bilirubin 0.6 AST 23 ALT 20 Alkaline Phosphatase 64 C-Reactive Protein 0.6 Total Protein 6.6 Albumin 3.8 Preliminary micro results at discharge 06/24/25 13:49 Blood Culture - Preliminary Blood 06/24/25 13:39 Blood Culture - Preliminary Blood Discharge Plan Discharge Attending physician on discharge: Devon Cleveland Consulting providers: Elias Nayak; Greg Hampton Discharging Clinician: Greg Hampton Anticipated Discharge Date/Time: 06/28/25 12:12 Patient Disposition: Home Activity: no straining Diet: heart healthy Discharge Instructions: Discharge disposition: Home Take medications as prescribed. You will be prescribed levofloxacin to be taken once daily and doxycycline to be taken twice daily until July 14, 2025. Take these for the entire course even if you start to feel better. Monitor blood pressures Take caution while standing, rising, or moving Change positions slowly taking a break between each position change If you standing feel dizzy sit back down and take a break Encouraged to continue with yearly vaccinations Return to the emergency department if he developed sudden shortness of breath, chest pain, nausea, vomiting, upset stomach or intractable diarrhea Return to the emergency department if you develop fever greater than 101.5 Follow-up with the primary care physician within 1-2 weeks Follow-up with Dr. Nayak from ENT in 10 days. Call his office today to schedule an appointment. Thank you for choosing [facility] for your healthcare needs Patient Instructions: Antibiotic Form Patient Language: Hungarian Stand Alone Forms: General Discharge Information Follow-up/Referrals: Elias Nayak MD [Primary Care Provider] - Discharge Medications: New doxycycline hyclate 100 mg Tablet 100 mg PO Q12HR Qty: 34 0RF levofloxacin 750 mg tablet 750 mg PO DAILY Qty: 20 0RF Continued Nexplanon 68 mg implant 1 implant subdermal ONCE Qty: 1 0RF Date of admission: 06/27/25 10:52 Primary Care Provider: Elias Nayak Admitting Provider: Devon Cleveland Attending physician on admission: Devon Cleveland Condition: Stable
== END 2025-06-28 12:45 | disposition home or self-care (01) | DRG 156 ==
LOC: ANHED 09:37 → ANH3MEDSUR 12:31
PROVIDERS: Student in an Organized Health Care Education/Training Program; Admitting Provider Family Medicine; Emergency Provider Registered Nurse; PCP Otolaryngology; Visit Provider Physician Assistant
DX: H60.92 Unspecified otitis externa, left ear (principal); K11.20 Sialoadenitis, unspecified; R59.1 Generalized enlarged lymph nodes; F32.A Depression, unspecified; F41.9 Anxiety disorder, unspecified; G43.909 Migraine, unspecified, not intractable, without status migrainosus; F17.210 Nicotine dependence, cigarettes, uncomplicated; Z90.49 Acquired absence of other specified parts of digestive tract
CPT/HCPCS: 36415; 70491; 70553; 80053; 83605; 85025; 85610; 85652; 85730; 86140; 87040; 96361; 96365; 96375; 96376; 99285; A9270; A9577; J1100; J1171; J1956; J2405; J7030; Q9967

== ENCOUNTER 2025-10-01 10:33 | Outpatient (CLI) | payer BC, SELFPAY ==
--- OUTSIDE RECORDS SUMMARY | 2025-09-21 12:45 | XMS_ITS | Clinical Summary ---
Author Organization [facility] Address [address] [place] [address] Care Team Providers Care Forklift Operator Name Role Phone No, Physician Primary Care Provider [phone] Allergies No known active allergies Medications ondansetron (ZOFRAN) 4 mg tablet Take 1 tablet (4 mg total) by mouth every 6 (six) hours 12 tablet 01/26/2023 Active dicyclomine (BENTYL) 20 mg tablet Take 1 tablet (20 mg total) by mouth 2 (two) times a day 20 tablet 01/26/2023 Active Encounters Date Type Department Care Team Description 2025 3:41 PM CDT - 2025 11:59 PM CDT Hospital Encounter [facility] [address] [place] [id number] Generalized enlarged lymph nodes Discharge Disposition: Discharge to home or self care from Last 3 Months Social History Tobacco Use Types Packs/Day Years Used Date Smoking Tobacco: Never Assessed Personal Safety Answer Date Recorded Have you ever been in or are you currently in a harmful physical or emotional relationship or is someone making you feel afraid or unsafe? Denies 01/26/2023 Comments Unknown Sex and Gender Information Value Date Recorded Sex Assigned at Not on file Legal Sex Female 10:37 AM CDT Gender Identity Not on file Sexual Orientation Not on file Last Filed Vital Signs Vital Sign Reading Time Taken Comments Blood Pressure 100/56 01/26/2023 2:00 PM CDT Pulse 113 01/26/2023 10:42 AM CDT Temperature 36.3 C (97.4 F) 01/26/2023 10:42 AM CDT Respiratory Rate 18 01/26/2023 10:42 AM CDT Oxygen Saturation 100% 01/26/2023 10:42 AM CDT Inhaled Oxygen Concentration - - Weight 78.5 kg (173 lb) 01/26/2023 10:42 AM CDT Height 177.8 cm (5' 10) 01/26/2023 10:42 AM CDT Body Mass Index 24.82 01/26/2023 10:42 AM CDT Plan of Treatment Health Maintenance Due Date Last Done Comments Cervical Cancer Screening 2002 Depression Screening 2002 Hepatitis C Screening 2002 DTaP/Tdap/Td Vaccine (1 - Tdap) 2013 Varicella Vaccines (1 of 2 - 13+ 2-dose series) 2015 HPV Vaccines (1 - 3-dose series) 2017 Meningococcal B Vaccine (1 o f 2 - Standard) 2018 Hepatitis B Screening 2020 Regular Well Visit/Exam 18-64 2020 Influenza Vaccine (#1) 2025 Pneumococcal vaccine <65 Aged Out No longer eligible based on patient's age to complete this topic Procedures Procedure Name Priority Date/Time Associated Diagnosis Comments US SOFT TISSUE HEAD NECK Schedule Routine, Read Routine (OP Routine) 2025 4:26 PM CDT Generalized enlarged lymph nodes from Last 3 Months Results * US Head Neck Soft Tissue (2025 4:26 PM CDT) Anatomical Region Laterality Modality Head and Neck N/A Ultrasound 08/14/2025 12:3 4 PM CDT Narrative 08/14/2025 12:37 PM CDT EXAM DESCRIPTION: US SOFT TISSUE HEAD NECK REASON FOR STUDY: generalized enlarged lymph nodes. Patient felt a lump a year ago, lump has gotten bigger over the last 3 months. TECHNIQUE: A Dynamic assessment was performed of the left parotid/left neck by the customer supply coordinator, with selected grayscale and color Doppler images acquired and recorded in PACS. COMPARISON: None available. FINDINGS: Targeted sonographic grayscale and color Doppler images labeled as left parotid gland were submitted for review. The customer supply coordinator measures hypoechoic reniform structures with central increased echogenicity and vascular flow in keeping with lymph nodes measuring up to 0.9 x 0.6 x 1 cm. IMPRESSION: There are nonspecific lymph nodes in the left neck as described. Clinical aspects of the case will determine the need for surveillance ultrasound versus further evaluation with contrast-enhanced CT after placement of a skin marker. THIS IS AN ELECTRONICALLY VERIFIED FINAL REPORT 08/14/2025 12:37 PM - Electronically signed by Eric Florentino D.O. AP: AP Report ID: [id number] Reading Location: [id number] Procedure Note Eric Florentino, DO - 08/14/2025 EXAM DESCRIPTION: US SOFT TISSUE HEAD NECK REASON FOR STUDY: generalized enlarged lymph nodes. Patient felt a lumpa year ago, lump has gotten bigger over the last 3 months. TECHNIQUE: A Dynamic assessment was performed of the left parotid/leftneck by the customer supply coordinator, with selected grayscale and color Doppler imagesacquired and recorded in PACS. COMPARISON: None available. FINDINGS: Targeted sonographic grayscale and color Doppler images labeled as left parotid gland were submitted for review. The customer supply coordinator measureshypoechoic reniform structures with central increased echogenicity and vascular flowin keeping with lymph nodes measuring up to 0.9 x 0.6 x 1 cm. IMPRESSION: There are nonspecific lymph nodes in the left neck as described.Clinical aspects of the case will determine the need for surveillance ultrasoundversus further evaluation with contrast-enhanced CT after placement of a skinmarker. THIS IS AN ELECTRONICALLY VERIFIED FINAL REPORT 08/14/2025 12:37 PM - Electronically signed by Eric Floretnino D.O. AP: AP Report ID: [id number] Reading Location: [id number] us Elias Nayak MD IMG US PROCEDURES Final Result from Last 3 Months Insurance [employer] PPO [place] Care Teams Forklift Operator Relationship Specialty Start Date End Date No, Physician PCP - General 01/26/23
--- OUTSIDE RECORDS SUMMARY | 2025-09-21 12:45 | XMS_ITS | Clinical Summary ---
Author Organization [facility] Address [address] [place] [address] Phone Care Team Providers Care Collector Of Internal Revenue Name Role Phone Provider, None Primary Care [...] of 3 - 19+ 3-dose series) 2021 Influenza Immunization (#1) 2025 SARS-COV-2 Immunization ( - season) 2025 Respiratory Syncytial Virus (RSV) Immunization (Adult) (1 - 1-dose 75+ series) 2077 Meningococcal Immunization (ACWY) Aged Out No longer eligible based on patient's age to complete this topic Pneumococcal Immunization Combined Aged Out No longer eligible based on patient's age to complete this topic Rotavirus Immunization Aged Out No lo nger eligible based on patient's age to complete this topic Care Teams Collector Of Internal Revenue Relationship Specialty Start Date End Date Provider, None [place] PCP - General 08/21/23
--- NOTE | ~2025-10-01 | US_ITS ---
EXAMINATION: US biopsy lymph node DATE: 10/01/2025 11:50 INDICATION: Localized enlarged lymph node TECHNIQUE: The procedure including the risks and benefits was discussed with the patient. Risks discussed included bleeding, infection, nerve injury and allergic reaction. The patient understood the risks and agreed to proceed. The skin overlying the left parotid was prepped and draped in usual sterile fashion. Anesthetic was administered with 1% lidocaine subcutaneously. An 18 gauge core biopsy needle was advanced under continuous ultrasound observation to the lesion of interest. 7 core biopsy specimens were obtained in the 3 placed in formalin and 4 in RPMI media. The needle was removed and the entry site was cleaned and dressed. Post procedure ultrasound demonstrated no hemorrhage. FINDINGS: Ultrasound images demonstrate a 12 x 7 x 4 mm lymph node along the anterior margin of the parotid. There are couple smaller hypoechoic more posterior intraparotid lymph nodes. Subsequent images demonstrate the biopsy needle advanced into the largest anterior lymph node. IMPRESSION: 1. Successful Ultrasound-guided biopsy of a 12 x 7 x 4 mm node along the anterior margin of the parotid. Reviewed, dictated and finalized at location A. K OFFBEARER IMPRESSION: 1. Successful Ultrasound-guided biopsy of a 12 x 7 x 4 mm node along the anteri or margin of the parotid.
--- OUTSIDE RECORDS SUMMARY | 2025-10-01 10:36 | XMS_ITS | Clinical Summary ---
Author Organization [facility] Address [address] [place] [address] Care Team Providers Care Wire Technician Name Role Phone No, Physician Primary Care Provider [phone] Allergies No known active allergies Medications ondansetron [...] - 2025 11:59 PM CDT Hospital Encounter [facility] [address] [place] [id number] Generalized enlarged lymph nodes Discharge Disposition: Discharge [...] of the left parotid/left neck by the senior health physics technician, with selected grayscale and color Doppler images acquired and recorded in PACS. COMPARISON: None available. FINDINGS: Targeted sonographic grayscale and color Doppler images labeled as left parotid gland were submitted for review. The senior health physics technician measures hypoechoic reniform structures with central increased [...] Eric Florentino D.O. AP: AP Report ID: [id number] Reading Location: [id number] Procedure Note Eric Florentino, DO - 08/14/2025 EXAM DESCRIPTION: US SOFT TISSUE HEAD NECK REASON FOR STUDY: generalized enlarged lymph nodes. Patient felt a lumpa year ago, lump has gotten bigger over the last 3 months. TECHNIQUE: A Dynamic assessment was performed of the left parotid/leftneck by the senior health physics technician, with selected grayscale and color Doppler imagesacquired and recorded in PACS. COMPARISON: None available. FINDINGS: Targeted sonographic grayscale and color Doppler images labeled as left parotid gland were submitted for review. The senior health physics technician measureshypoechoic reniform structures with central increased echogenicity [...] Eric Florentino D.O. AP: AP Report ID: [id number] Reading Location: [id number] us Elias Nayak MD IMG US PROCEDURES Final Result from Last 3 Months Insurance [employer] PPO [place] Care Teams Wire Technician Relationship Specialty Start Date End Date No, Physician PCP - General 01/26/23
--- NOTE | 2025-10-01 11:40 | S_PTH ---
PATIENT: Bettina Clayton LOC: ANHIMG U#:[id number] AGE/SX: 25/F ROOM: RE10/01/[address]: Elias Nayak MD : 2000 BED: DIS: 10/01/2025 SPEC #: [id number] RECD: 10/01/25 12:14 STATUS: MELODIE MOLINA #: [id number] MAVIS: 10/01/25 11:[address]: Elias Nayak DEPT: [facility] Surgical RECD BY: Jocy Rowley ENTERED: 10/01/25 12:14 SP TYPE: Surgical OTHR DR: OPERATIONS PROGRAM MANAGER PHYSICIAN Tissues: A - Lymph Node Biopsy Procedures: Unstained Slides Hematoxylin and Eosin Stain Gross and Microscopic Level 4
== END 2025-10-01 10:34 | disposition home or self-care (01) ==
PROVIDERS: Visit Provider Otolaryngology
DX: R59.0 Localized enlarged lymph nodes (principal)
CPT/HCPCS: 38505; 76942; 88305; 88341; 88342